=== PATIENT | female | born 1955 | race Caucasian/White ===

== ENCOUNTER 2021-08-23 09:25 | Emergency (ER) | payer OTHER, MEDICARE ==
--- OUTSIDE RECORDS SUMMARY | 2021-08-23 09:28 | XMS REPORT | Continuity of Care Document ---
:1955 Author Organization [facility] t Address [address] [place] [address] Dr. Andrea [address] [place] [id number] Care Team Providers Name Role Phone LIZET Attending Clinician Unavailable Payers Payer Name Policy Type Policy Number Effective Date Expiration Date [facility] [employer] [id number] 2021 00:00:00 Problems This patient has no known problems. Allergies, Adverse Reactions, Alerts This patient has no known allergies or adverse reactions. Medications This patient has no known medications. Procedures This patient has no known procedures. Encounters Start End Encounter Admission Attending Care Care Encounter Source Date/Time Date/Time Type Type Clinicians Facility Department ID 2020-12-06 Outpatient LIZET, [facility] [id number] [place] 04:02:37 [facility] [employer] Results This patient has no known results.
[2021-08-23] MEDS ORDERED: TETRACAINE HCL 0.5% 4ML OPTH ONE (10:16)
[2021-08-23 10:26] LABS: Absolute Lymphocytes (CBC) 1.8 K/uL (0.7-4.9); Hematocrit 44.8 % (36.0-45.0); MPV 7.3 fL (7.6-11.3); RBC Red Blood Cell Count 5.02 M/uL (3.86-4.86)
[2021-08-23 10:35] LABS: Potassium 3.9 mmol/L (3.5-5.1)
--- NOTE | 2021-08-23 10:38 | RAD REPORT ---
EXAM DESCRIPTION: CT - Head Brain Wo Cont - 08/23/2021 10:26 am CLINICAL HISTORY: left eye double vision COMPARISON: Facial Bones W Con Mpr dated 08/23/2021 TECHNIQUE: All CT scans are performed using dose optimization technique as appropriate and may inclu de automated exposure control or mA/KV adjustment according to patient size. FINDINGS: No intracranial hemorrhage, hydrocephalus or extra-axial fluid collection.No areas of brai n edema or evidence of midline shift. Chronic small vessel ischemic changes. Age-indeterminate right frontal dill radiata infarct. Trace maxillary sinus thickening. The calvarium is intact. IMPRESSION: Age indeterminate right frontal dill radiata/periventricular infarct. Chronic small ve ssel ischemic changes. MRI could further clarify.
--- NOTE | 2021-08-23 10:49 | RAD REPORT ---
EXAM DESCRIPTION: CT - CTFBWCON CLINICAL HISTORY: left eye pain, double vision COMPARISON: No comparisons TECHNIQUE: Axial 2 mm thick images of the face were obtained with sagittal and coronal reconstructio n images. All CT scans are performed using dose optimization technique as appropriate and may include automated exposure control or mA/KV adjustment according to patient size. FINDINGS: No acute facial bone fracture is seen.The mandible is intact. The globes and orbital contents are grossly unremarkable.Mild paranasal sinus thickening of the maxil eduardo sinuses. IMPRESSION: Negative for facial bone fracture.No enhancing fluid collections. Mild probably chronic maxillary sinus disease.
--- NOTE | 2021-08-23 11:42 | ER ---
Nurse's Notes [facility] Name: Abigail Barlow Age: 65 yrs Sex: Female : 1955 Arrival Date: 08/23/2021 Time: 09:28 Bed 20 Private MD: Diagnosis: Diplopia Presentation: 08/23 09:35 Chief complaint: Patient states: left eye pain, pressure, blurred vision and double clark vision. Coronavirus screen: Vaccine status: Patient reports receiving the 2nd dose of the covid vaccine. Ebola Screen: Patient denies travel to an Ebola-affected area in the 21 days before illness onset. Initial Sepsis Screen: Does the patient meet any 2 criteria? No. Patient's initial sepsis screen is negative. Does the patient have a suspected source of infection? No. Patient's initial sepsis screen is negative. Risk Assessment: Do you want to hurt yourself or someone else? Patient reports no desire to harm self or others. Onset of symptoms was August 20, 2021. 09:35 Method Of Arrival: Ambulatory clark 09:35 Acuity: JOAN 3 clark Triage Assessment: 09:37 General: Appears in no apparent distress. Behavior is calm, cooperative. Pain: clark Complains of pain in left eye. Historical: - Allergies: 09:37 PENICILLINS; clark - Immunization history:: Adult Immunizations up to date. - Social history:: Smoking status: Patient denies any tobacco usage or history of. Screenin:40 Abuse screen: Denies threats or abuse. Denies injuries from another. Nutritional bp screening: No deficits noted. Tuberculosis screening: No symptoms or risk factors identified. Fall Risk None identified. Assessment: 09:40 General: SEE TRIAGE NOTE. bp 11:00 Reassessment: No changes from previously documented assessment. Patient and/or family bp updated on plan of care and expected duration. Pain level reassessed. 12:00 Reassessment: TRANSFER IN PROCESS. bp 14:00 Reassessment: No changes from previously documented assessment. Patient and/or family bp updated on plan of care and expected duration. Pain level reassessed. 16:00 Reassessment: REPORT TO FRANCK SHANNON AT [facility]. TRANSPORT PENDING.bp 17:05 Reassessment: [facility] FOR TRANSPORT. bp Vital Signs: 09:35 BP 187 / 98; Pulse 76; Resp 18; Temp 98.2(T); Pulse Ox 96% on R/A; Weight 68.95 kg; clark Height 5 ft. 2 in. (157.48 cm); 12:00 BP 166 / 76; Pulse 65; Resp 16; Pulse Ox 97% ; bp 14:00 BP 191 / 77; Pulse 67; Resp 17; Pulse Ox 98% ; bp 16:00 BP 185 / 75; Pulse 66; Resp 17; Pulse Ox 98% ; bp 09:35 Body Mass Index 27.80 (68.95 kg, 157.48 cm) clark ED Course: 09:28 Patient arrived in ED. as 09:37 Triage completed. clark 09:37 Arm band placed on. clark 09:38 Nicholas Buckley MD is Attending Physician. rn 09:40 Patient has correct armband on for positive identification. Bed in low position. Call bp light in reach. Side rails up X2. Adult w/ patient. 10:08 Karthik Rodrigues, SHIVA is Primary Nurse. bp 10:11 Inserted saline lock: 22 gauge in right antecubital area, using aseptic technique. bp Blood collected. 10:15 Initial lab(s) drawn, by me, sent to lab. mb4 10:26 CT Head Brain wo Cont In Process Unspecified. EDMS 10:28 CT Facial Bones W/ Con \T\ Mpr In Process Unspecified. EDMS 11:01 initiated a transfer with Soraya Stein Rn from the [facility]. eb 14:39 initiated a transfer with Christie from the [facility]. eb 14:53 connected the neurologist solid waste division supervisor for [facility] with Dr. Buckley for patient eb transfer consultation. 15:20 CT Neck Angio In Process Unspecified. EDMS 15:20 CT Head Angio In Process Unspecified. EDMS 15:55 administrative approval given by Keysha Da Silva Rn/ patient has been accepted to [facility]/ Dr. Thang Carnes has accepted the patient in transfer/ report to be called to [phone]. 16:34 No provider procedures requiring assistance completed. Patient transferred, IV remains bp in place. Administered Medications: 10:18 Drug: Tetracaine Drops 0.5 % 1 drops Route: Ophthalmic; Site: left eye; bp 12:00 Drug: Aspirin Chewable Tablet 324 mg Route: PO; bp 12:16 Follow up: Response: No adverse reaction bp 12:00 Drug: Ibuprofen 800 mg Route: PO; bp 12:17 Follow up: Response: No adverse reaction bp Outcome: 11:42 ER care complete, transfer ordered by . shiva 17:05 Transferred by ground EMS to [facility], Transfer form completed. bp 17:05 Condition: stable 17:05 Instructed on the need for transfer. 17:06 Patient left the ED. bp Signatures: Dispatcher [employer] Judith Martinez Roman, MD MD rn Peltier, Brian RN Maddy Handley Mackenzie mb4 Sophia-StagerFrancesca RN RN clark Corrections: (The following items were deleted from the chart) 10:18 10:17 Tetracaine Drops 0.5 % 1 drops Ophthalmic in right eye bp bp
--- NOTE | 2021-08-23 11:42 | EDPHYS ---
Physician Documentation [facility] Name: Abigail Barlow Age: 65 yrs Sex: Female : 1955 Arrival Date: 08/23/2021 Time: 09:28 Bed 20 Private MD: ED Physician Nicholas Buckley HPI: 08/23 10:28 This 65 yrs old Female presents to ER via Ambulatory with complaints of Vision Problem, rn Sinus Congestion. Historical: - Allergies: 09:37 PENICILLINS; clark - Immunization history:: Adult Immunizations up to date. - Social history:: Smoking status: Patient denies any tobacco usage or history of. Exam: 10:46 Eyes: Pupils equal round and reactive to light, extra-ocular motions intact. Lids and rn lashes normal. Conjunctiva and sclera are non-icteric and not injected. Cornea within normal limits. Mild tenderness along medial periorbital skin withou discloration. Tonopen reveals normal pressure, right eye 19, left eye checked twice and pressures were 14/17. Vital Signs: 09:35 BP 187 / 98; Pulse 76; Resp 18; Temp 98.2(T); Pulse Ox 96% on R/A; Weight 68.95 kg; clark Height 5 ft. 2 in. (157.48 cm); 12:00 BP 166 / 76; Pulse 65; Resp 16; Pulse Ox 97% ; bp 14:00 BP 191 / 77; Pulse 67; Resp 17; Pulse Ox 98% ; bp 16:00 BP 185 / 75; Pulse 66; Resp 17; Pulse Ox 98% ; bp 09:35 Body Mass Index 27.80 (68.95 kg, 157.48 cm) clark MDM: 09:38 Patient medically screened. rn 10:59 ED course: Consulted with Dr. Arzate, who requests transfer for MRI and neurological rn consultation given diplopia and age indeterminate right frontal stroke.. 11:40 Differential Diagnosis: Other orbital cellulitis, TIA, CVA, MS, strabismus, nerve rn palsy. Data reviewed: vital signs, nurses notes, lab test result(s), radiologic studies, CT scan, and as a result, I will admit patient. Counseling: I had a detailed discussion with the patient and/or guardian regarding: the historical points, exam findings, and any diagnostic results supporting the discharge/admit diagnosis, lab results, radiology results, the need for further work-up and treatment in the hospital, the need to transfer to another facility, [facility] required specialist. 14:45 ED course: Still no acceptance from [facility], initiated to [facility]. . rn 15:05 ED course: Pt accepted for transfer to [facility], neurology requests CTA rn performed prior to transfer, order placed, notified by radiology that they do not want to give another contrast bolus given ct face with contrast performed earlier today. [place] notified.. 15:10 ED course: Dr. Campoverde stated ok to give another contrast study.. rn 08/23 09:51 Order name: CBC with Diff; Complete Time: 10:45 rn 08/23 09:51 Order name: Basic Metabolic Panel; Complete Time: 10:45 rn 08/23 09:51 Order name: Procalcitonin; Complete Time: 14:53 rn 08/23 11:06 Order name: SARS-COV-2 RT PCR (Document "Date of Onset" if Symptomatic); Complete Time: eb 14:53 08/23 11:40 Order name: TSH; Complete Time: 15:45 rn 08/23 13:48 Order name: CREATININE WHOLE BLOOD; Complete Time: 14:53 EDMS 08/23 09:51 Order name: CT Head Brain wo Cont; Complete Time: 10:45 rn 08/23 09:51 Order name: CT Facial Bones W/ Con \\T\\ Mpr; Complete Time: 10:55 rn 08/23 15:10 Order name: CT Neck Angio; Complete Time: 15:45 rn 08/23 15:10 Order name: CT Head Angio; Complete Time: 15:45 rn 08/23 09:51 Order name: IV Start; Complete Time: 10:09 rn 08/23 09:51 Order name: Misc. Order: Tonopen to bedside; Complete Time: 10:17 rn Administered Medications: 10:18 Drug: Tetracaine Drops 0.5 % 1 drops Route: Ophthalmic; Site: left eye; bp 12:00 Drug: Aspirin Chewable Tablet 324 mg Route: PO; bp 12:16 Follow up: Response: No adverse reaction bp 12:00 Drug: Ibuprofen 800 mg Route: PO; bp 12:17 Follow up: Response: No adverse reaction bp Disposition Summary: 01/23/22 11:42 Transfer Ordered Reason: Higher level of care rn Condition: Stable rn Problem: new rn Symptoms: are unchanged tele rn Location: [facility](08/23/21 16:56) eb Accepting Physician: Dr. Thang Carnes(08/23/21 17:06) Diagnosis - Diplopia rn Forms: - Medication Reconciliation Form rn - SBAR form rn Signatures: Dispatcher [employer] EDMS Nicholas Buckley MD MD rn Peltier, Brian RN Maddy Handley Heather RN SHIVA clark Corrections: (The following items were deleted from the chart) 15:14 14:57 Head Angio+CT.RAD.BRZ ordered. EDMS EDMS 15:14 14:57 Neck Angio+CT.RAD.BRZ ordered. EDSD EDMS 16:56 11:42 Dr. salazar eb 16:56 11:42 [facility] shiva eb 17:06 16:56 Dr. Thang Carnes eb bp
[2021-08-23] MEDS ORDERED: ASPIRIN 81 MG CHEWABLE TABLET ONE (12:02)
[2021-08-23] MEDS ORDERED: IBUPROFEN 400 MG TAB ONE (12:11)
--- NOTE | 2021-08-23 15:32 | RAD REPORT ---
EXAM DESCRIPTION: CT - Neck Angio - 08/23/2021 3:20 pm CLINICAL HISTORY: diplopia COMPARISON: No comparisons TECHNIQUE: CT angiography of the neck vessels was performed with MIPs. All CT scans are performed using dose optimization technique as appropriate and may include automated exposure control or mA/KV adjustment according to patient size. FINDINGS: A left aortic arch is identified with normal three vessel configuration of the great vesse ls. No significant flow abnormality is seen of the common carotid bilaterally. No significant stenosis is identified involving the cervical segments of both internal carotid arteri es. Normal flow is seen within both vertebral arteries. IMPRESSION: No significant flow abnormality of the neck vessels is identified.
--- NOTE | 2021-08-23 15:37 | RAD REPORT ---
EXAM DESCRIPTION: CT - Head angio - 08/23/2021 3:21 pm CLINICAL HISTORY: diplopia COMPARISON: Head Brain Wo Cont dated 08/23/2021; Facial Bones W Con Mpr dated 08/23/2021 TECHNIQUE: CT angiography of the head was performed with MIPs. All CT scans are performed using dose optimization technique as appropriate and may include automated exposure control or mA/KV adjustment according to patient size. FINDINGS: Anterior circulation: No large vessel occlusion. Absent right A1 segment. Variant anatomy with 2 mm aneurysm arising from t he right A2 segment of the anterior cerebral artery. No hemodynamically significant stenosis. No jasson riovenous malformation identified. Posterior circulation: No aneurysm or large vessel occlusion. No hemodynamically significant stenosis. No arteriovenous malf ormation identified. 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 Absent right A1 segment.
[2021-08-23 21:51] VITALS: TEMP 98.2
[2021-08-23 21:53] VITALS: O2SAT 98
[2021-08-23 21:54] VITALS: BP 185/75
== END 2021-08-23 17:06 | disposition short-term general hospital (02) ==
LOC: ER 09:25
DX: H53.2 Diplopia (principal); Z20.822 Contact with and (suspected) exposure to COVID-19; Z88.0 Allergy status to penicillin
CPT/HCPCS: 85025; 80048; 36415; 82565; 84443; 84145; 70450; 70487; 76377; 70496; 70498; U0003; Q9967 ×2; 99285

== ENCOUNTER 2021-11-10 17:57 | Inpatient (IN) | payer OTHER, MEDICARE ==
--- OUTSIDE RECORDS SUMMARY | 2021-11-10 18:00 | XMS REPORT | Continuity of Care Document ---
:1955 Author Organization [facility] t Address [address] [place] [address] Dr. Andrea [address] [place] [address] Care Team Providers Name Role Phone Lizet SMITH Primary Care Physician FIFI Attending Clinician Unavailable LIZET Attending Clinician Unavailable Adrianna GTZ Attending Clinician Unavailable Payers Payer Name Policy Type Policy Number Effective Date [facility] Date [facility] [employer] [id number] 2021 2021 00:00:00 00:00:00 MEDICARE PART A AND [id number] 2020 B 00:00:00 Problems This patient has no known problems. Allergies, Adverse Reactions, Alerts Allergy Allergy Status Severity Reaction(s) Onset Inactive Treating Comm ents Source Name Type Date Date Clinician Penicill Allergy Active Hives [facility] ins to 5-25 Health substan 00:00: e 00 Social History Social Habit Start Date Stop Date Quantity Comments Source Exposure to Not sure [facility] SARS-CoV-2 (event) Tobacco use and 2021-09-09 2021-09-09 Smokeless tobacco [facility] exposure 00:00:00 00:00:00 non-user Sex Ass[birth year] [facility] 00:00:00 00:00:00 Smoking Status Start Date Stop Date Source Tobacco smoking consumption unknown [facility] Never smoked tobacco [facility] Medications Ordered Filled Start Stop Current Ordering Indication Dosage Frequency Signature Comments Components Source Medication Medication Date Date Medication? Clinician (SIG) Name Name amLODIPine Yes 5mg QD Take 5 mg [facility] (Norvasc) 5 1-31 by mouth 1 He alth MG tablet 00:00: (one) time 00 each day. ondansetron Yes TAKE 1 [facility] (Zofran) 4 -31 TABLET BY Heal th MG tablet 00:00: MOUTH 4 00 TIMES DAILY NEEDED FOR NAUSEA AND VOMITING amLODIPine 0 Yes 5mg QD Take 5 mg UT (Norvasc) 5 -31 by mouth 1 He alth MG tablet 00:00: (one) time 00 each day. ondansetron Yes TAKE 1 UT (Zofran) 4 -31 TABLET BY Heal th MG tablet 00:00: MOUTH 4 00 TIMES DAILY NEEDED FOR NAUSEA AND VOMITING amLODIPine 0 Yes 5mg QD Take 5 mg UT (Norvasc) 5 31 by mouth 1 He alth MG tablet 00:00: (one) time 00 each day. ondansetron Yes TAKE 1 UT (Zofran) 4 -31 TABLET BY Heal th MG tablet 00:00: MOUTH 4 00 TIMES DAILY NEEDED FOR NAUSEA AND VOMITING predniSONE Yes 20mg QD Take 20 mg U T (Deltasone) 1-28 by mouth 1 He alth 20 MG 00:00: (one) time tablet 00 each day. TAKE 1 TABLET BY MOUTH ONCE DAILY FOR 14 DAYS predniSONE Yes 20mg QD Take 20 mg U T (Deltasone) 1-28 by mouth 1 He alth 20 MG 00:00: (one) time tablet 00 each day. TAKE 1 TABLET BY MOUTH ONCE DAILY FOR 14 DAYS predniSONE Yes 20mg QD Take 20 mg U T (Deltasone) 1-28 by mouth 1 He alth 20 MG 00:00: (one) time tablet 00 each day. TAKE 1 TABLET BY MOUTH ONCE DAILY FOR 14 DAYS metoprolol 2020-08 Yes 50mg QD Take 50 mg U T succinate 19 by mouth 1 Heal th XL 00:00: (one) time (Toprol-XL) 00 each day. 50 MG 24 hr tablet sertraline 2020-08 Yes 50mg QD Take 50 mg U T (Zoloft) 50 -19 by mouth 1 He alth MG tablet 00:00: (one) time 00 each day. rosuvastati 2020-08 Yes 20mg QD Take 20 mg UT n (Crestor) -19 by mouth 1 He alth 20 MG 00:00: (one) time tablet 00 each day. metoprolol 2020-08 Yes 50mg QD Take 50 mg U T succinate 1-19 by mouth 1 Heal th XL 00:00: (one) time (Toprol-XL) 00 each day. 50 MG 24 hr tablet sertraline 2020-08 Yes 50mg QD Take 50 mg U T (Zoloft) 50 -19 by mouth 1 He alth MG tablet 00:00: (one) time 00 each day. rosuvastati 2020-08 Yes 20mg QD Take 20 mg UT n (Crestor) 1-19 by mouth 1 He alth 20 MG 00:00: (one) time tablet 00 each day. metoprolol 2020-08 Yes 50mg QD Take 50 mg U T succinate 1-19 by mouth 1 Heal th XL 00:00: (one) time (Toprol-XL) 00 each day. 50 MG 24 hr tablet sertraline 2020-08 Yes 50mg QD Take 50 mg U T (Zoloft) 50 -19 by mouth 1 He alth MG tablet 00:00: (one) time 00 each day. rosuvastati 2020-08 Yes 20mg QD Take 20 mg UT n (Crestor) 1-19 by mouth 1 He alth 20 MG 00:00: (one) time tablet 00 each day. tiZANidine 2020-08 Yes TAKE 1 UT (Zanaflex) 1-18 TABLET BY [facility] 4 MG tablet 00:00: MOUTH 00 TWICE DAILY NEEDED FOR BACK PAIN tiZANidine 2020-08 Yes TAKE 1 UT (Zanaflex) 1-18 TABLET BY [facility] 4 MG tablet 00:00: MOUTH 00 TWICE DAILY NEEDED FOR BACK PAIN tiZANidine 2020-08 Yes TAKE 1 UT (Zanaflex) 1-18 TABLET BY [facility] 4 MG tablet 00:00: MOUTH 00 TWICE DAILY NEEDED FOR BACK PAIN Ilevro 0.3 2020-0 Yes UT % 8-03 Health suspension 00:00: 00 Ilevro 0.3 2020-0 Yes UT % 8-03 Health suspension 00:00: 00 Ilevro 0.3 2020-0 Yes UT % 8-03 Health suspension 00:00: 00 Durezol 0 Yes UT 0.05 % 8-02 Health ophthalmic 00:00: solution 00 Durezol 2020-0 Yes HI 0.05 % 8- Health ophthalmic 00:00: solution 00 Durezol 2020-0 Yes HI 0.05 % 8- Health ophthalmic 00:00: solution 00 Vital Signs Vital Name Observation Time Observation Value Comments Source Systolic blood pressure 2021-09-07 20:23:00 109 mm[Hg] [facility] Diastolic blood pressure 2021-09-07 20:23:00 70 mm[Hg] [facility] Heart rate 2021-09-07 20:23:00 62 /min [facility] Body temperature 2021-09-07 20:23:00 36 Tiera [facility] Respiratory rate 2021-09-07 20:23:00 18 /min [facility] Body height 2021-09-07 20:23:00 157.5 cm [facility] Body weight 2021-09-07 20:23:00 72.576 kg [facility] BMI 2021-09-07 20:23:00 29.26 kg/m2 [facility] Oxygen saturation in 2021-09-07 20:23:00 97 /min [facility] Arterial blood by Pulse oximetry Procedures This patient has no known procedures. Encounters Start End Encounter Admission Attending Care Care Encounter Source Date/Time Date/Time Type Type Clinicians Facility Department ID 2021-11-10 Outpatient [facility] [id number] [place] 14:31:12 [id number] [facility] 2021-11-07 Outpatient [facility] [id number] [place] 12:57:[id number] [place] [address] 2021-09-28 Outpatient FIFI [facility] [id number] [place] 09:14:43 ORE-YANETHANAALIYAH [facility] 2021-09-08 Outpatient FIFI [facility] [id number] [place] 13:35:10 ORE-OFEOLAALIYAH [facility] 2021-09-07 Outpatient LIZET [facility] [id number] [place] 15:29:23 [facility] 2020-12-06 Outpatient LIZET, [facility] [id number] [place] 04:02:37 [facility] 2021-09-28 2021-09-28 [id number] [place] 09:00:00 09:13:[address] [id number] Health atomi [id number] 2021-09-08 2021-09-08 Telephone Erica Rodas [facility] [id number] [place] 00:00:00 00:00:00 Erica Rodas [facility] [id number] Health [facility] [id number] 2021-09-07 2021-09-07 Office LizetMARINA 6410 [id number] [place] 14:45:00 15:29:[address] [id number] Health [id number] Results This patient has no known results.
--- NOTE | 2021-11-10 19:14 | RAD REPORT ---
EXAM DESCRIPTION: RAD - Chest Single View - 11/10/2021 7:06 pm CLINICAL HISTORY: COUGH COMPARISON: None available TECHNIQUE: AP portable chest image was obtained 11/10/2021 7:06 pm . FINDINGS: No peripheral mass consolidation. Mildly prominent interstitial pattern is believed be bas elizabeth. Rounded mass in the midline lung base is very likely an incidental hiatal hernia. Heart and vasculature are normal. No measurable pleural effusion and no pneumothorax. No acute bony abnormality seen. No acute aortic findings suspected. IMPRESSION: No acute cardiopulmonary process.
[2021-11-10] MEDS ORDERED: METHYLPREDNISOLONE 125 MG INJ ONE (19:58)
[2021-11-10] MEDS ORDERED: HYDROCODONE/CHLORPHEN 5 ML/OSYR ONE (19:58)
[2021-11-10] MEDS ORDERED: ALBUTEROL 2.5 MG/3 ML NEB SOL ONE (19:59)
[2021-11-10] MEDS ORDERED: IPRATROPIUM BROM 0.5MG/2.5ML ONE (20:00)
[2021-11-10 20:44] LABS: Arterial Blood Carboxyhemoglob 1.7 % (0-1.5); Blood Gas Oxyhemoglobin 97.3 % (94-97); Blood O2 Saturation 99.8 % (92-98.5)
[2021-11-10 20:51] LABS: Absolute Lymphocytes (CBC) 1.5 K/uL (0.7-4.9); Hematocrit 38.8 % (36.0-45.0); Lymphocytes % 13.7 % (15.3-44.8); MPV 7.8 fL (7.6-11.3); RBC Red Blood Cell Count 4.48 M/uL (3.86-4.86)
[2021-11-10 20:52] LABS: Protime INR 1.26
[2021-11-10 21:09] LABS: Albumin 3.2 g/dL (3.4-5.0); Bilirubin Direct 0.2 mg/dL (0-0.2); Bilirubin Total 0.6 mg/dL (0.2-1.0); Potassium 3.2 mmol/L (3.5-5.1); Protein, Total 7.1 g/dL (6.4-8.2); Troponin High Sensitivity 53.2 pg/mL (<58.9)
[2021-11-10 21:23] LABS: SARS-COV-2 RT PCR NEGATIVE (NEGATIVE)
--- NOTE | 2021-11-10 22:03 | RAD REPORT ---
EXAM DESCRIPTION: CT - Chest For Pe Angio - 11/10/2021 9:43 pm CLINICAL HISTORY: SOB COMPARISON: Chest Single View dated 11/10/2021 TECHNIQUE: Dynamically enhanced 3 mm thick images of the chest were obtained during administration o f approximately 150mL Isovue 370 IV contrast. Coronal and oblique MIP reconstruction images were gene rated and reviewed. Exam utilizes a protocol to evaluate the pulmonary arterial tree. All CT scans are performed using dose optimization technique as appropriate and may include automated exposure control or mA/KV adjustment according to patient size. FINDINGS: No pulmonary emboli are identified. The aorta as imaged shows no acute or suspicious finding. No pericardial thickening or effusion. No focal mass consolidation. Bronchial wall thickening present. Interstitial thickening is present th roughout the lung rose and could be interstitial edema, infiltrate, scarring or a combination. No p leural effusion or pleural thickening. No mediastinal or hilar suspicious masses. No chest wall masses or abnormal axillary lymphadenopathy. Moderate hiatal hernia present. IMPRESSION: No pulmonary emboli identified. Peribronchial thickening and prominent interstitial markings could be viral infiltrate in the acute c linical setting. Chronic fibrotic lung changes possible as well.
--- NOTE | 2021-11-10 22:30 | ER ---
Nurse's Notes [facility] Name: Abigail Barlow Age: 66 yrs Sex: Female : 1955 Arrival Date: 11/10/2021 Time: 18:00 Bed 26 Private MD: Eliot Arzate C Diagnosis: COPD/ Chronic obstructive pulmonary disease with (acute) exacerbation-Hypoxia Presentation: 11/10 18:33 Chief complaint: Patient states: cough, fever and shortness of breath that began 4 days ss ago. Pt reports her baseline O2 on RA is 94%, was was concerned today when she couldn't get it above 90%. HX of COPD. Coronavirus screen: Client presents with at least one sign or symptom that may indicate coronavirus-19. Standard/surgical mask placed on the client. Ebola Screen: Patient denies exposure to infectious person. Patient denies travel to an Ebola-affected area in the 21 days before illness onset. Initial Sepsis Screen: Does the patient meet any 2 criteria? No. Patient's initial sepsis screen is negative. Does the patient have a suspected source of infection? No. Patient's initial sepsis screen is negative. Risk Assessment: Do you want to hurt yourself or someone else? Patient reports no desire to harm self or others. Onset of symptoms was November 06, 2021. 18:33 Method Of Arrival: Ambulatory ss 18:33 Acuity: JOAN 3 ss Historical: - Allergies: 18:35 PENICILLINS; ss - PMHx: 18:35 COPD; ss - Immunization history:: Client reports receiving the 2nd dose of the Covid vaccine. - Social history:: Smoking status: Patient denies any tobacco usage or history of. Screenin:28 Abuse screen: Denies threats or abuse. Nutritional screening: No deficits noted. al4 Tuberculosis screening: No symptoms or risk factors identified. 11/11 00:54 Fall Risk No fall in past 12 months (0 pts). IV access (20 points). Ambulatory Aid- al4 None/Bed Rest/Nurse Assist (0 pts). Gait- Normal/Bed Rest/Wheelchair (0 pts) Mental Status- Oriented to own ability (0 pts). Total Mckay Fall Scale indicates No Risk (0-24 pts). Assessment: 11/10 20:06 General: Appears in no apparent distress. comfortable, Behavior is calm, cooperative, al4 appropriate for age. Neuro: Level of Consciousness is awake, alert, obeys commands, Oriented to person, place, time, situation. Cardiovascular: Capillary refill < 3 seconds Patient's skin is warm and dry. Respiratory: Reports cough that is productive. Respiratory: Airway is patent Respiratory effort is unlabored, Respiratory pattern is symmetrical, Breath sounds with rhonchi bilaterally. GI: Reports nausea, vomiting, since Tuesday. EENT: Reports nasal congestion throat congestion. 20:06 Cardiovascular: Rhythm is regular. al4 23:10 Reassessment: Patient is alert, oriented x 3, equal unlabored respirations, skin al4 warm/dry/pink. 23:40 Reassessment: Lab notified to draw blood cultures. ordered blood cultures before al4 antibiotics start. 23:50 Reassessment: RT came to bedside, patient was concerned about O2 level being 92% al4 stating she is normally 94% at home. RT stated to put patient on 3L O2. 11/11 00:00 Reassessment: Patient appears in no apparent distress at this time. Patient is alert, al4 oriented x 3, equal unlabored respirations, skin warm/dry/pink. Vital Signs: 11/10 18:33 BP 143 / 75; Pulse 103; Resp 17; Temp 99.1(O); Pulse Ox 87% on R/A; Weight 70.31 kg; ss Height 5 ft. 2 in. (157.48 cm); Pain 0/10; 20:06 BP 133 / 62; Pulse 86; Resp 24; Pulse Ox 94% on 2 lpm NC; al4 21:00 BP 114 / 69; Pulse 92; Resp 18; Pulse Ox 94% 2 lpm ; al4 23:10 BP 124 / 68; Pulse 74; Resp 22; Pulse Ox 94% on 2 lpm NC; al4 11/11 00:00 BP 112 / 75; Pulse 78; Resp 22; Pulse Ox 94% 3 lpm ; al4 00:45 BP 115 / 54; Pulse 77; Resp 20; Pulse Ox 94% on 3 lpm NC; al4 11/10 18:33 Body Mass Index 28.35 (70.31 kg, 157.48 cm) ED Course: 11/10 18:00 Patient arrived in ED. mr 18:00 Eliot Arzate MD is Private Physician. mr 18:34 Triage completed. ss 18:35 Arm band placed on right wrist. ss 18:38 [facility] pm1 18:38 Andrew Watkins MD is Attending Physician. pm1 19:08 XRAY Chest (1 view) In Process Unspecified. EDMS 19:50 Gerson Veronica is Primary Nurse. al4 20:05 Attending Physician role handed off by Andrew Watkins MD 7 20:05 aDnny William MD is Attending Physician. mh7 20:06 Inserted saline lock: 20 gauge in right antecubital area, using aseptic technique. al4 Blood collected. 20:26 COVID-19/FLU A+B (Document "Date of Onset" if Symptomatic) Sent. al4 20:28 Bed in low position. Call light in reach. al4 20:32 Danny William MD is Attending Physician. mh7 21:44 Chest For Pe Angio In Process Unspecified. EDMS 22:29 Eliot Arzate MD is Hospitalizing Provider. [facility] 11/11 01:05 No provider procedures requiring assistance completed. Patient admitted, IV remains in al4 place. 01:47 NT PRO-BNP Sent. al4 01:48 NT PRO-BNP Sent. al4 01:48 CBC with Automated Diff Sent. al4 01:48 CBC with Automated Diff Sent. al4 01:48 Basic Metabolic Panel Sent. al4 01:48 Basic Metabolic Panel Sent. al4 Administered Medications: 11/10 20:17 Drug: SOLU-Medrol (methylPrednisoLONE) 125 mg Route: IVP; Site: right antecubital; al4 21:00 Follow up: Response: No adverse reaction al4 20:17 Drug: Tussionex Pennkinetic ER (chlorpheniramine-hydrocodone) Suspension 5 ml Route: PO;al4 21:00 Follow up: Response: No adverse reaction al4 20:26 Drug: Albuterol - atroVENT (ipratropium) (3:1) (2.5 mg - 0.5 mg) 3 ml Route: Nebulizer; al4 21:00 Follow up: Response: No adverse reaction al4 23:49 Drug: Potassium Effervescent Tablet 50 mEq Route: PO; sc4 11/11 01:06 Follow up: Response: No adverse reaction al4 11/10 23:49 Drug: Lasix (furosemide) 20 mg Route: IVP; Infused Over: 2 mins; Site: right al4 antecubital; 11/11 01:06 Follow up: Response: No adverse reaction al4 00:25 Drug: LevaQUIN (levofloxacin) 500 mg Volume: 100 ml; Route: IVPB; Infused Over: 60 al4 mins; Site: right antecubital; 01:26 Follow up: Response: No adverse reaction; IV Status: Completed infusion; IV Intake: al4 100ml Intake: 01:26 IV: 100ml; Total: 100ml. al4 Outcome: 11/10 22:29 Decision to Hospitalize by Provider. 7 11/11 01:05 Admitted to ER Hold. [facility]. al4 Condition: stable Instructed on the need for admit, Demonstrated understanding of instructions. 17:57 Patient left the ED. Signatures: Dispatcher [employer] HERNESTOPA Lupillo Savi lane Aleyda Vidal RN RN ss Rick Hilario, DOCKING SAW OPERATOR DOCKING SAW OPERATOR pm1 Danny William MD MD 7 Gerson Veronica al4 Corrections: (The following items were deleted from the chart) 00:19 11/10 23:50 Reassessment: RT came to bedside, patient was concerned about O2 level. RT al4 stated to put patient on 3L O2 al4 11/11 00:54 11/10 20:06 Respiratory: Airway is patent Respiratory effort is unlabored, Respiratory al4 pattern is symmetrical, al4
--- NOTE | 2021-11-10 22:30 | EDPHYS ---
Physician Documentation [facility] Name: Abigail Barlow Age: 66 yrs Sex: Female : 1955 Arrival Date: 11/10/2021 Time: 18:00 Bed 26 Private MD: Eliot Arzate C ED Physician Danny William HPI: 11/10 20:15 This 66 yrs old Female presents to ER via Ambulatory with complaints of Cough, Fever, mh7 Shortness Of Breath. 20:15 The patient or guardian reports cough, that is intermittent, described as moderate, mh7 with productive sputum, that is yellow, difficulty breathing, Fever. Onset: The symptoms/episode began/occurred 4 day(s) ago. Severity of symptoms: At their worst the symptoms were moderate, last night, in the emergency department the symptoms are unchanged. Modifying factors: The symptoms are alleviated by nothing, the symptoms are aggravated by nothing. Associated signs and symptoms: Pertinent positives: fever, rhinorrhea, Pertinent negatives: chest pain, diarrhea, ear ache, nausea, sore throat, vomiting. Historical: - Allergies: 18:35 PENICILLINS; ss - PMHx: 18:35 COPD; ss - Immunization history:: Client reports receiving the 2nd dose of the Covid vaccine. - Social history:: Smoking status: Patient denies any tobacco usage or history of. ROS: 20:15 Eyes: Negative for injury, pain, redness, and discharge, ENT: Negative for injury, mh7 pain, and discharge, Neck: Negative for injury, pain, and swelling, Cardiovascular: Negative for chest pain, palpitations, and edema, Abdomen/GI: Negative for abdominal pain, nausea, vomiting, diarrhea, and constipation, Back: Negative for injury and pain, : Negative for injury, bleeding, discharge, and swelling, MS/Extremity: Negative for injury and deformity, Skin: Negative for injury, rash, and discoloration, Neuro: Negative for headache, weakness, numbness, tingling, and seizure, Psych: Negative for depression, anxiety, suicide ideation, homicidal ideation, and hallucinations, Allergy/Immunology: Negative for hives, rash, and allergies, Endocrine: Negative for neck swelling, polydipsia, polyuria, polyphagia, and marked weight changes, Hematologic/Lymphatic: Negative for swollen nodes, abnormal bleeding, and unusual bruising. Exam: 20:15 Constitutional: This is a well developed, well nourished patient who is awake, alert, mh7 and in no acute distress. Head/Face: Normocephalic, atraumatic. Eyes: Pupils equal round and reactive to light, extra-ocular motions intact. Lids and lashes normal. Conjunctiva and sclera are non-icteric and not injected. Cornea within normal limits. Periorbital areas with no swelling, redness, or edema. Neck: Trachea midline, no thyromegaly or masses palpated, and no cervical lymphadenopathy. Supple, full range of motion without nuchal rigidity, or vertebral point tenderness. No Meningismus. Chest/axilla: Normal chest wall appearance and motion. Nontender with no deformity. No lesions are appreciated. 20:15 Abdomen/GI: Soft, non-tender, with normal bowel sounds. No distension or tympany. No guarding or rebound. No evidence of tenderness throughout. Back: No spinal tenderness. No costovertebral tenderness. Full range of motion. Skin: Warm, dry with normal turgor. Normal color with no rashes, no lesions, and no evidence of cellulitis. MS/ Extremity: Pulses equal, no cyanosis. Neurovascular intact. Full, normal range of motion. Neuro: Awake and alert, GCS 15, oriented to person, place, time, and situation. Cranial nerves II-XII grossly intact. Motor strength 5/5 in all extremities. Sensory grossly intact. Cerebellar exam normal. Normal gait. Psych: Awake, alert, with orientation to person, place and time. Behavior, mood, and affect are within normal limits. 20:15 Cardiovascular: Rate: tachycardic, Rhythm: regular, Pulses: no pulse deficits are appreciated, Heart sounds: normal, normal S1and S2, Edema: is not appreciated, JVD: is not appreciated. 20:15 Respiratory: the patient does not display signs of respiratory distress, Respirations: prolonged exhalation, that is mild, Breath sounds: rhonchi, that are moderate, are scattered, Respiratory rate: 18 Vital Signs: 18:33 BP 143 / 75; Pulse 103; Resp 17; Temp 99.1(O); Pulse Ox 87% on R/A; Weight 70.31 kg; ss Height 5 ft. 2 in. (157.48 cm); Pain 0/10; 20:06 BP 133 / 62; Pulse 86; Resp 24; Pulse Ox 94% on 2 lpm NC; al4 21:00 BP 114 / 69; Pulse 92; Resp 18; Pulse Ox 94% 2 lpm ; al4 23:10 BP 124 / 68; Pulse 74; Resp 22; Pulse Ox 94% on 2 lpm NC; al4 11/11 00:00 BP 112 / 75; Pulse 78; Resp 22; Pulse Ox 94% 3 lpm ; al4 00:45 BP 115 / 54; Pulse 77; Resp 20; Pulse Ox 94% on 3 lpm NC; al4 11/10 18:33 Body Mass Index 28.35 (70.31 kg, 157.48 cm) ss MDM: 11/10 18:44 Patient medically screened. pm1 22:27 Differential Diagnosis: Bronchitis Influenza Upper Respiratory Infection Sinusitis mh7 Pharyngitis Otitis Media Allergic Rhinitis Asthma Exacerbation Viral Syndrome Pneumonia. Data reviewed: vital signs, nurses notes, old medical records, lab test result(s), cardiac enzymes, CBC, electrolytes, EKG, radiologic studies, CT scan, plain films. Data interpreted: Pulse oximetry: on 2L(s) per nasal canula, is 90 %. Interpretation: hypoxia. Counseling: I had a detailed discussion with the patient and/or guardian regarding: the historical points, exam findings, and any diagnostic results supporting the discharge/admit diagnosis, lab results, radiology results, the need for further work-up and treatment in the hospital. Response to treatment: the patient's symptoms have mildly improved after treatment. 11/10 18:40 Order name: COVID-19/FLU A+B (Document "Date of Onset" if Symptomatic); Complete Time: ss 21:24 11/10 18:43 Order name: Basic Metabolic Panel; Complete Time: 21:13 pm1 11/10 18:43 Order name: CBC with Diff; Complete Time: 21:00 pm1 11/10 18:43 Order name: LFT's; Complete Time: 21:13 pm1 11/10 18:43 Order name: NT PRO-BNP; Complete Time: 21:13 pm1 11/10 18:43 Order name: PT-INR; Complete Time: 21:00 pm1 11/10 18:43 Order name: Troponin HS; Complete Time: 21:13 pm1 11/10 20:14 Order name: Arterial Blood Gas; Complete Time: 21:00 [facility] 11/10 22:27 Order name: Blood Culture Adult (2) [facility] 11/10 22:38 Order name: Basic Metabolic Panel [facility] 11/10 22:38 Order name: Basic Metabolic Panel [facility] 11/10 22:38 Order name: CBC with Automated Diff EDMS 11/10 22:38 Order name: CBC with Automated Diff EDMS 11/10 22:38 Order name: NT PRO-BNP [facility] 11/10 18:35 Order name: XRAY Chest (1 view); Complete Time: 19:55 ss 11/10 18:43 Order name: EKG; Complete Time: 18:44 pm1 11/10 18:43 Order name: Cardiac monitoring; Complete Time: 20:43 pm1 11/10 21:19 Order name: Chest For Pe Angio; Complete Time: 22:05 [facility] 11/10 22:38 Order name: Heart Healthy [facility] 11/10 22:38 Order name: EKG Electrocardiogram [facility] 11/10 22:38 Order name: EKG Electrocardiogram [facility] 11/10 22:38 Order name: NT PRO-BNP [facility] 11/10 22:38 Order name: Chest Single View [facility] 11/10 22:38 Order name: Chest Single View [facility] 11/10 18:43 Order name: EKG - Nurse/Tech; Complete Time: 20:43 pm1 11/10 18:43 Order name: IV Saline Lock; Complete Time: 20:26 pm1 11/10 18:43 Order name: Labs collected and sent; Complete Time: 20:26 pm1 11/10 18:43 Order name: O2 Per Protocol; Complete Time: 20:26 pm1 11/10 18:43 Order name: O2 Sat Monitoring; Complete Time: 20:26 pm1 Administered Medications: 20:17 Drug: SOLU-Medrol (methylPrednisoLONE) 125 mg Route: IVP; Site: right antecubital; al4 21:00 Follow up: Response: No adverse reaction al4 20:17 Drug: Tussionex Pennkinetic ER (chlorpheniramine-hydrocodone) Suspension 5 ml Route: PO;al4 21:00 Follow up: Response: No adverse reaction al4 20:26 Drug: Albuterol - atroVENT (ipratropium) (3:1) (2.5 mg - 0.5 mg) 3 ml Route: Nebulizer; al4 21:00 Follow up: Response: No adverse reaction al4 23:49 Drug: Potassium Effervescent Tablet 50 mEq Route: PO; al4 11/11 01:06 Follow up: Response: No adverse reaction al4 11/10 23:49 Drug: Lasix (furosemide) 20 mg Route: IVP; Infused Over: 2 mins; Site: right al4 antecubital; 11/11 01:06 Follow up: Response: No adverse reaction al4 00:25 Drug: LevaQUIN (levofloxacin) 500 mg Volume: 100 ml; Route: IVPB; Infused Over: 60 al4 mins; Site: right antecubital; 01:26 Follow up: Response: No adverse reaction; IV Status: Completed infusion; IV Intake: al4 100ml Disposition Summary: 11/10/21 22:29 Hospitalization Ordered Hospitalization Status: Inpatient Admission [facility] Provider: Eliot Arzate Condition: Stable [facility] Problem: an acute exacerbation [facility] Symptoms: have improved [facility] Bed/Room Type: Standard [facility] Location: Telemetry/MedSurg (Inpatient)(11/11/21 17:23) Room Assignment: 220(11/11/21 17:23) Diagnosis - COPD/ Chronic obstructive pulmonary disease with (acute) exacerbation - Hypoxia [facility] Forms: - Medication Reconciliation Form [facility] - SBAR form [facility] Signatures: Dispatcher [employer] EDMS Urvashi Riley RN RN mw Smirch, Shelby, RN RN ss Attema, Lee, PIPE LAYER-C PIPE LAYER-Cla1 Andrew López PA PA Rick Kendrick, SINCERE WEAVE DEFECT CHARTING CLERK pm1 Danny William MD MD 7 Gerson Veronica al4 Corrections: (The following items were deleted from the chart) 11/10 23:11 22:29 Telemetry/MedSurg (Inpatient) [facility] 23:11 22:29 [facility] 11/11 17:23 11/10 23:11 [facility] ER HOLD [facility] 11/11 17:23 11/10 23:11 ERHOLD- [facility]
[2021-11-10] MEDS ORDERED: IPRATROPIUM BROM 0.5MG/2.5ML NEB PRN (22:32)
[2021-11-10] MEDS ORDERED: MORPHINE 4 MG/ML SYR IV PRN (22:32)
[2021-11-10] MEDS ORDERED: ONDANSETRON 4 MG/2 ML VIAL IV PRN (22:32)
[2021-11-10] MEDS ORDERED: ACETAMINOPHEN 500 MG TAB PO PRN (22:32)
[2021-11-10] MEDS ORDERED: POTASSIUM 25 MEQ EFFERV TAB ONE (23:38)
[2021-11-10] MEDS ORDERED: FUROSEMIDE 20 MG/ 2ML VIAL ONE (23:38)
[2021-11-10] MEDS ORDERED: Levofloxacin500mg IV 500 MG/100 ML BAG IV ONE (23:39)
[2021-11-11 01:49] LABS: Absolute Lymphocytes (CBC) 0.5 K/uL (0.7-4.9); Hematocrit 38.3 % (36.0-45.0); Lymphocytes % 4.8 % (15.3-44.8); MPV 7.6 fL (7.6-11.3); RBC Red Blood Cell Count 4.33 M/uL (3.86-4.86)
[2021-11-11 02:05] LABS: Potassium 3.8 mmol/L (3.5-5.1)
[2021-11-11 03:26] VITALS: BMI 28.3
[2021-11-11] MEDS: METHYLPREDNISOLONE 40 MG INJ IV SCH ×3 (04:30→16:55)
[2021-11-11] MEDS ORDERED: METHYLPREDNISOLONE 40 MG INJ ONE (05:25)
[2021-11-11] MEDS: ALBUTEROL 2.5 MG/3 ML NEB SOL NEB SCH ×3 (08:00→20:39)
[2021-11-11] MEDS: IPRATROPIUM BROM 0.5MG/2.5ML NEB SCH ×3 (08:00→20:39)
--- NOTE | 2021-11-11 08:25 | RAD REPORT ---
EXAM DESCRIPTION: [place]heen Single View11/11/2021 5:00 am CLINICAL HISTORY: Chest pain COMPARISON: October 2021 FINDINGS: The lungs appear clear of acute infiltrate. The heart is normal size. Small hiatal hernia IMPRESSION: No acute abnormalities displayed
[2021-11-11] MEDS: ASPIRIN EC 81 MG TAB PO SCH (09:00)
[2021-11-11] MEDS: ENOXAPARIN 40 MG/0.4 ML SQ SCH (09:00)
[2021-11-11] MEDS: SERTRALINE HCL 50 MG TAB PO SCH (10:00)
[2021-11-11] MEDS ORDERED: METHYLPREDNISOLONE 125 MG INJ ONE ×2 (10:16→16:56)
[2021-11-11] MEDS ORDERED: ASPIRIN 81 MG CHEWABLE TABLET ONE (10:16)
[2021-11-11] MEDS ORDERED: METOPROLOL XL 50 MG TAB PO ONE (10:16)
[2021-11-11] MEDS: METOPROLOL XL 50 MG TAB PO SCH (10:16)
--- NOTE | 2021-11-11 10:59 | EKG ---
Test Date: 2021-11-10 Test Time: 20:34:10 Executive Vp: CAESAR MEASUREMENT RESULTS: Intervals: Rate: 84 MT: 136 QRSD: 86 QT: 396 QTc: 467 Goodwin: P: 37 MT: 136 QRS: 75 T: 65 INTERPRETIVE STATEMENTS: Normal sinus rhythm Cannot rule out Anterior infarct, age undetermined Abnormal ECG No previous ECG available for comparison Electronically Signed On 11-11-21 10:57:17 CDT by Marcelo Ding
[2021-11-11] MEDS ORDERED: ALBUTEROL 2.5 MG/3 ML NEB SOL ONE (15:15)
[2021-11-11] MEDS ORDERED: IPRATROPIUM BROM 0.5MG/2.5ML ONE (15:15)
[2021-11-11] MEDS: Levofloxacin500mg IV 500 MG/100 ML BAG IV SCH (22:22)
[2021-11-11] MEDS: ROSUVASTATIN 10 MG TAB PO SCH (22:23)
[2021-11-12] MEDS ORDERED: ALBUTEROL 2.5 MG/3 ML NEB SOL NEB PRN
[2021-11-12] MEDS: ALBUTEROL 2.5 MG/3 ML NEB SOL NEB SCH ×5 (01:12→20:10)
[2021-11-12] MEDS: IPRATROPIUM BROM 0.5MG/2.5ML NEB SCH ×5 (01:12→20:10)
[2021-11-12] MEDS: METHYLPREDNISOLONE 40 MG INJ IV SCH ×2 (01:43→10:10)
--- NOTE | 2021-11-12 04:00 | HP ---
Date of Admission: 11/10/2021 Patient was seen this morning. Chief Complaint: Cough, shortness of breath. History Of Present Illness: This is a 66-year-old pleasant female patient who has underlying COPD, c paige into emergency room with few days history of cough, chest congestion, coughing up some yellow col ored mucus, and shortness of breath. After she was evaluated in the ER, [facility]. Her oxygen saturation at home before she came to emergency room was around 86% to 87% on room air. After she came to emergency room, oxygen replacement therapy was started and when I saw her on this morning, she was on nasal cannula oxygen, maintaining adequate oxygenation. Allergies: TO PENICILLIN. Medications: According to office list, she is on Prevacid, Ventolin, metoprolol, Asmanex, Stiolto, r osuvastatin, sertraline, tizanidine. Review of Systems: Respiratory: As mentioned above. All other systems reviewed and negative. Past Medical History: Significant for COPD, hypertension, hyperlipidemia, gastroesophageal reflux di sease, back pain. Past Surgical History: Cataract surgery. Family History: Sister with colon cancer and hypertension. Social History: Prior history of smoking, not at present time. Use of alcohol, a glass of wine occa sionally. Physical Examination: Vital Signs: Temperature 97.8, pulse 62, respiratory rate 17, blood pressure 123/66, oxygen saturati on 95%. Height 5 feet 2 inches, weight 155 pounds. General: Awake, alert, oriented, not in distress. HEENT: Head atraumatic, normocephalic. Conjunctivae nonerythematous. Sclerae white. Mouth, no thr ush or edema noted. Ears/Nose, no mass, lesion, discharge noted. Neck: Supple. No JVD, lymph nodes, bruit, thyromegaly noted. Lungs: Presence of some rales noted in lower lung rose. Not using any accessory muscles of respir ation. Heart: Normal heart sounds, no murmur or gallop. Abdomen: Soft, bowel sounds normal. No guarding, rigidity, tenderness, mass, hepatosplenomegaly, dis tention, or bruit noted. Extremities: No leg edema. No calf tenderness. Skin: No rash, ulcer, cellulitis. Lymphatics: No lymph node enlargement in neck, supraclavicular, infraclavicular region. Neuro: No focal neurological deficit. Chest: Unremarkable. External Genitalia: Deferred. Rectal: Deferred. Laboratory Data: Last night, white count 10.8, hemoglobin 13.2, platelets 258. This morning white c ount 9.5, hemoglobin 12.7, platelets 239. Arterial blood gas; pH 7.43, pCO2 38.8, pO2 281, oxygen sa turation 99.8% on 100% FiO2. Yesterday, sodium , potassium 3.2, chloride 105, bicarb 27, B UN 11, creatinine 0.76, glucose 110. Liver function tests unremarkable. ProBNP 709. This morning s odium 138, potassium 3.8, chloride 102, bicarb 29, BUN 10, creatinine 0.84, glucose 198. ProBNP 530. Influenza A and B and COVID-19 test negative. CAT scan of the chest per PE protocol negative for p ulmonary embolism. Presence of peribronchial thickening and prominent interstitial marking, could be infiltrate. Chest x-ray, no acute cardiopulmonary changes. Impression: 1.Acute exacerbation of chronic obstructive pulmonary disease. 2.Pneumonia. 3.Hypertension. 4.Hyperlipidemia. 5.Gastroesophageal reflux disease. Plan: Admit patient to hospital for further evaluation and management of this problem. Patient is a ppropriate for inpatient and is expected to spend 2 midnights in hospital. We will start DVT prophyl axis using Lovenox per order. Continue home medications per order. We will give nebulizer treatment using albuterol and Atrovent every 6 hours and IV steroid will be given per order. Empiric antibiot ic was started using Levaquin and I will see her tomorrow for followup. Details and plan of treatmen t discussed with her ends. RITA/MODL Voice ID: [id number]
[2021-11-12] MEDS: METOPROLOL XL 50 MG TAB PO SCH (10:00)
[2021-11-12] MEDS: SERTRALINE HCL 50 MG TAB PO SCH (10:00)
[2021-11-12] MEDS: ASPIRIN EC 81 MG TAB PO SCH (10:00)
[2021-11-12] MEDS: ENOXAPARIN 40 MG/0.4 ML SQ SCH (10:11)
[2021-11-12] MEDS: METHYLPREDNISOLONE 125 MG INJ IV SCH (17:00)
[2021-11-12] MEDS: Levofloxacin500mg IV 500 MG/100 ML BAG IV SCH (20:16)
[2021-11-12] MEDS: GUAIFENESIN/DM 5 ML UCUP PO PRN (20:17)
[2021-11-12] MEDS: ROSUVASTATIN 10 MG TAB PO SCH (20:17)
[2021-11-12] MEDS: PANTOPRAZOLE 40MG TABLET PO SCH (21:52)
--- NOTE | 2021-11-13 00:48 | PN ---
Date of Progress Note: 11/12/2021 Subjective: The patient was seen this morning for followup. No new complaints or problems reported by her. The patient remains on nasal cannula oxygen. Denies any new complaints, problems. Overall, she feels better. Objective: Vital Signs: Reviewed. HEENT: Unremarkable. Lungs: Clear to auscultation. Heart: Sounds normal. Abdomen: Soft. Bowel sounds normal. No guarding, rigidity, tenderness, or distention. Extremities: No leg edema. Laboratory Data: No new labs today. Impression: 1.Acute exacerbation of chronic obstructive pulmonary disease. 2.Pneumonia. 3.Acute respiratory failure with hypoxia. 4.Hypertension. Plan: We will continue oxygen replacement. Continue current antibiotic, steroids. Ambulation was e ncouraged. Continue current antihypertensive medication and DVT prophylaxis. I will see her tomorro w for followup, possible discharge, to go home tomorrow if we are able to wean off oxygen today. RITA/MODL Voice ID: [id number] Report ID: [id number]
[2021-11-13] MEDS: ALBUTEROL 2.5 MG/3 ML NEB SOL NEB SCH ×2 (01:23→08:04)
[2021-11-13] MEDS: IPRATROPIUM BROM 0.5MG/2.5ML NEB SCH ×2 (01:23→08:04)
[2021-11-13] MEDS: GUAIFENESIN/DM 5 ML UCUP PO PRN (01:27)
[2021-11-13] MEDS: METHYLPREDNISOLONE 125 MG INJ IV SCH ×2 (01:28→09:00)
[2021-11-13] MEDS: SERTRALINE HCL 50 MG TAB PO SCH (09:00)
[2021-11-13] MEDS: METOPROLOL XL 50 MG TAB PO SCH (09:00)
[2021-11-13] MEDS: ENOXAPARIN 40 MG/0.4 ML SQ SCH (09:00)
[2021-11-13] MEDS: ASPIRIN EC 81 MG TAB PO SCH (09:00)
[2021-11-13 09:05] VITALS: O2SAT 93
[2021-11-13] MEDS ORDERED: predniSONE 10 MG TAB PO ONE (09:28)
[2021-11-13 09:37] VITALS: BP 132/63; TEMP 96.8
--- NOTE | 2021-11-14 10:15 | DS ---
Date of Discharge: 11/13/2021 History: Patient was seen this morning for followup. She was sitting at bedside, not in any distres s. Physical Examination: Vital Signs: Reviewed. HEENT: Unremarkable. Lungs: Clear to auscultation. No wheezing. No rales. Heart: Sounds normal. Abdomen: Soft. Bowel sounds normal. No guarding, rigidity, tenderness, distention. Extremities: No leg edema. Laboratory Data: On 11/10/2021, white count 10.8, hemoglobin 13.2, platelets 258 and on 11/11/2021, white count 9.5, hemoglobin 12.7, platelets 239. Her chemistry on 11/10/2021, sodium 139, potassium 3.2, chloride 105, bicarb 27, BUN 11, creatinine 0.76, glucose 110. Liver function tests unremarkabl e and next day, sodium 138, potassium 3.8, chloride 102, bicarb 29, BUN 10, creatinine 0.84, glucose is 198. COVID-19 test was negative. CAT scan of the chest per PE protocol was negative for pulmonar y embolism. It did show presence of peribronchial thickening and prominent interstitial marking, cou ld be infiltrate. Chest x-ray, no acute cardiopulmonary changes. Final Diagnoses: 1.Acute exacerbation of chronic obstructive pulmonary disease. 2.Hypokalemia. 3.Pneumonia. 4.Hypertension. 5.Hyperlipidemia. 6.Gastroesophageal reflux disease. 7.Acute respiratory failure with hypoxia. Discharge Medications And Instructions: Continue all prior home medications. Take following any med ications. Prescription will be sent to pharmacy. 1.Levaquin 500 mg daily for 1 week. 2.Prednisone 10 mg, patient to take 3 tablets by mouth daily for 3 days, then 2 tablets by mouth darryn ly for 3 days, then 1 tablet by mouth daily for 3 days, then stop. 3.Follow up at my office next week on Tuesday or and call office for appointment. Hospital Course: This is a 66-year-old pleasant female patient, admitted to the hospital with cough, congestion, shortness of breath. Please see dictated H and P for more information. After the patie nt came into emergency room, she was evaluated and admitted to the hospital with acute exacerbation o f COPD and pneumonia problem. She was started on IV steroid, IV antibiotics, oxygen for hypoxia that was noted, and nebulizer treatment. Overall, her condition has improved. Patient required initiall y 1-2 L nasal cannula oxygen. Subsequently, we were able to wean off. This morning when I saw her, she was not using any oxygen. She has not used any oxygen since yesterd ay and has done very well. She reported that when respiratory therapist came to check on her oxygen saturation this morning, it was reported as 76, but she feels like it was due to loose connection bet ween pulse oximeter and her finger and she asked respiratory therapist to check her oxygen using diff erent finger and respiratory therapies refused to do so. Patient has her own pulse oximeter and she has been monitoring her own oxygen saturation and it is important to note that she did not feel any d ifferent when respiratory therapist told her about her oxygen saturation being 76%. She did not have any complaints. No shortness of breath, and she was feeling just fine like the way she was feeling when I saw her. During the time while I was in the room with her, her lowest oxygen saturation that had dropped down just for probably matter a few seconds, it was 89%, otherwise it has remained 90 or higher than 90% and even with talking at the moment she takes some deep breaths, it goes up to 95%. She understands the fact that she may require home oxygen at some point in the future, but not necess arily at this time and she will continue to monitor oxygen level at home. She has her rivet sorter whom she sees on a yearly basis. Last visit was about 2 months ago with her rivet sorter in [place] . At that time, her rivet sorter gave her Trelegy inhaler sample and I did encourage her to try Ahsan legy inhaler in place of her current inhaler that she is using at home with water 1 puff daily. The patient was encouraged that at home she should walk for 4 or 5 minutes every hour while she is awake during daytime and deep breathing exercise was also advised. Patient will be discharged to go home i n stable condition today and I will see her at office next week for followup. RITA/MODL Voice ID: [id number] Report ID: [id number]
== END 2021-11-13 10:50 | disposition home or self-care (01) | DRG 193 ==
LOC: ER 17:57 → ERHOLD 22:53 → 2ND 11-11 20:09
PROVIDERS: ADMIT Internal Medicine; ATTEND Internal Medicine
DX: J18.9 Pneumonia, unspecified organism (principal); J96.01 Acute respiratory failure with hypoxia; J44.1 Chronic obstructive pulmonary disease with (acute) exacerbation; J44.0 Chronic obstructive pulmonary disease with (acute) lower respiratory infection; E87.6 Hypokalemia; I10 Essential (primary) hypertension; E78.5 Hyperlipidemia, unspecified; K21.9 Gastro-esophageal reflux disease without esophagitis; M54.9 Dorsalgia, unspecified; Z20.822 Contact with and (suspected) exposure to COVID-19; Z79.899 Other long term (current) drug therapy; Z88.0 Allergy status to penicillin; Z87.891 Personal history of nicotine dependence; Z82.49 Family history of ischemic heart disease and other diseases of the circulatory system; Z80.0 Family history of malignant neoplasm of digestive organs
CPT/HCPCS: 0240U; 36415; 71045; 71275; 80048; 80076; 82805; 83880; 84484; 85025; 85610; 87040; 93005; 94640; 94760; 96365; 96375; 99285; J1650; J1940; J2920; J2930; Q9967

== ENCOUNTER 2022-06-28 09:31 | Inpatient (IN) | payer OTHER, MEDICARE ==
--- OUTSIDE RECORDS SUMMARY | 2022-06-28 09:37 | XMS REPORT | Continuity of Care Document ---
:1955 Author Organization [facility] t Address [address] [place] [address] [address] [place] [address] Care Team Providers Name Role Phone Dl Hinds MD Primary Care Physician EAN CALIX Attending Clinician Unavailable DL HINDS Attending Clinician Unavailable Erica Rodas MA Attending Clinician Unavailable Payers Payer Name Policy Type Policy Number Effective Date Expiration Date S bhargavi MEDICARE PART A AND [id number] 2020 B 00:00:00 [facility] [employer] [id number] 2021 00:00:00 Problems This patient has no known problems. Allergies, Adverse Reactions, Alerts Allergy Allergy Status Severity Reaction(s) Onset Inactive Treating Comm ents Source Name Type Date Date Clinician Penicill Allergy Active Hives [facility] ins to 5-25 Health substan 00:00: e 00 Social History Social Habit Start Date Stop Date Quantity Comments Source Exposure to Not sure [facility] SARS-CoV-2 (event) Tobacco use and 2021-09-09 2021-09-09 Smokeless tobacco [facility] exposure 00:00:00 00:00:00 non-user Sex Ass[birth year] [facility] 00:00:00 00:00:00 Smoking Status Start Date Stop Date Source Tobacco smoking consumption unknown [facility] Never smoked tobacco [facility] Medications Ordered Filled Start Stop Current Ordering Indication Dosage Frequency Signature Comments Components Source Medication Medication Date Date Medication? Clinician (SIG) Name Name amLODIPine Yes 5mg QD Take 5 mg [facility] (Norvasc) 5 1-31 by mouth 1 [facility] MG tablet 00:00: (one) time 00 each day. ondansetron 2022-0 Yes TAKE 1 [facility] (Zofran) 4 1-31 TABLET BY [facility] MG tablet 00:00: MOUTH 4 00 TIMES DAILY NEEDED FOR NAUSEA AND VOMITING amLODIPine 2022-0 Yes 5mg QD Take 5 mg [facility] (Norvasc) 5 -31 by mouth 1 [facility] MG tablet 00:00: (one) time 00 each day. ondansetron 2022-0 Yes TAKE 1 [facility] (Zofran) 4 1-31 TABLET BY [facility] MG tablet 00:00: MOUTH 4 00 TIMES DAILY NEEDED FOR NAUSEA AND VOMITING amLODIPine 2-0 Yes 5mg QD Take 5 mg [facility] (Norvasc) 5 -31 by mouth 1 [facility] al[facility] MG tablet 00:00: (one) time 00 each day. ondansetron 2022-0 Yes TAKE 1 [facility] (Zofran) 4 1-31 TABLET BY [facility] MG tablet 00:00: MOUTH 4 00 TIMES DAILY NEEDED FOR NAUSEA AND VOMITING amLODIPine 2-0 Yes 5mg QD Take 5 mg UT (Norvasc) 5 -31 by mouth 1 [facility] al[facility] MG tablet 00:00: (one) time 00 each day. ondansetron 2-0 Yes TAKE 1 UT (Zofran) 4 1-31 TABLET BY [facility] MG tablet 00:00: MOUTH 4 00 TIMES DAILY NEEDED FOR NAUSEA AND VOMITING amLODIPine 2022-0 Yes 5mg QD Take 5 mg UT (Norvasc) 5 -31 by mouth 1 He alth MG tablet 00:00: (one) time 00 each day. ondansetron 2022-0 Yes TAKE 1 [facility] (Zofran) 4 1-31 TABLET BY [facility] MG tablet 00:00: MOUTH 4 00 TIMES DAILY NEEDED FOR NAUSEA AND VOMITING predniSONE 2022-0 Yes 20mg QD Take 20 mg U T (Deltasone) 1-28 by mouth 1 He alth 20 MG 00:00: (one) time tablet 00 each day. TAKE 1 TABLET BY MOUTH ONCE DAILY FOR 14 DAYS predniSONE 2022-0 Yes 20mg QD Take 20 mg U [...] MOUTH ONCE DAILY FOR 14 DAYS predniSONE 0 Yes 20mg QD Take 20 mg U [...] QD Take 50 mg U T succinate -19 by mouth 1 [facility]al [facility] XL 00:00: [...] QD Take 50 mg U T succinate -19 by mouth 1 [facility]al [facility] XL 00:00: [...] QD Take 50 mg U T succinate -19 by mouth 1 [facility]al [facility] XL 00:00: [...] TAKE 1 UT (Zanaflex) 1-18 TABLET [address] [facility] 4 MG tablet 00:00: MOUTH 00 TWICE DAILY NEEDED FOR BACK PAIN tiZANidine 2020-08 Yes TAKE 1 UT (Zanaflex) 1-18 TABLET BY [facility] 4 MG tablet 00:00: MOUTH 00 TWICE DAILY NEEDED FOR BACK PAIN tiZANidine 2020-08 Yes TAKE 1 UT (Zanaflex) 1-18 TABLET [address] [facility] 4 MG tablet 00:00: MOUTH 00 TWICE DAILY NEEDED FOR BACK PAIN tiZANidine 2020-08 Yes TAKE 1 UT (Zanaflex) 1-18 TABLET [address] [facility] 4 MG tablet 00:00: MOUTH 00 TWICE DAILY NEEDED FOR BACK PAIN tiZANidine 1 Yes TAKE 1 UT (Zanaflex) 1-18 TABLET [address] [facility] 4 MG tablet 00:00: MOUTH 00 TWICE DAILY NEEDED FOR BACK PAIN Ilevro 0.3 2020-0 Yes UT % 8- Health suspension 00:00: 00 Ilevro 0.3 2020-0 Yes UT % 8 Health suspension 00:00: 00 Ilevro 0.3 2020-0 Yes UT % 8 Health suspension 00:00: 00 Ilevro 0.3 2020-0 Yes UT % 8- Health suspension 00:00: 00 Ilevro 0.3 2020-0 Yes UT % 8- Health suspension 00:00: 00 Durezol 2020-0 Yes UT 0.05 % 8- Health ophthalmic 00:00: solution 00 Durezol 2020-0 Yes UT 0.05 % 8- Health ophthalmic 00:00: solution 00 Durezol 2020-0 Yes UT 0.05 % 8-02 Health ophthalmic 00:00: solution 00 Durezol 2020-0 Yes UT 0.05 % 8-02 Health ophthalmic 00:00: solution 00 Durezol 2020-0 Yes UT 0.05 % 8-02 Health ophthalmic 00:00: solution 00 Vital Signs Vital Name Observation Time Observation Value Comments Source Systolic blood pressure 2021-09-07 20:23:00 109 mm[Hg] [facility] Diastolic blood pressure 2021-09-07 20:23:00 70 mm[Hg] [facility] Heart rate 2021-09-07 20:23:00 62 /min [facility] Body temperature 2021-09-07 20:23:00 36 Tiera [facility] Respiratory rate 2021-09-07 20:23:00 18 /min [facility] Body height 2021-09-07 20:23:00 157.5 cm [facility] Body weight 2021-09-07 20:23:00 72.576 kg [facility] BMI 2021-09-07 20:23:00 29.26 kg/m2 [facility] Oxygen saturation in 2021-09-07 20:23:00 97 /min [facility] Arterial blood by Pulse oximetry Procedures This patient has no known procedures. Encounters Start End Encounter Admission Attending Care Care Encounter Source Date/Time Date/Time Type Type Clinicians Facility Department ID 2021-09-28 Outpatient FIFI, [facility] [id number] [place] 09:14:43 CRISTOBAL [facility] ATOM 2021-09-08 Outpatient FIFI, [facility] [id number] [place] 13:35:10 CRISTOBAL [facility] ATOM 2021-09-07 Outpatient LIZET, [facility] [id number] [place] 15:29:23 [facility] 2020-12-06 Outpatient LIZET, [facility] [id number] [place] 04:02:37 [facility] 2021-11-16 2021-11-16 Office Fifi [facility] 6400 [id number] [place] 14:30:00 14:45:[address] [id number] [facility] [id number] 2021-09-28 2021-09-28 Office MARINA Calix 6400 [id number] [place] 09:00:00 09:13:[address] [id number] [facility] [id number] 2021-09-09 2021-09-09 Office Fifi [facility] 6400 [id number] [place] 13:45:00 14:00:[address] [id number] [facility] [id number] 2021-09-08 2021-09-08 Telephone Erica Rodas [facility] [id number] [place] 00:00:00 00:00:00 Erica Rodas [facility] [id number] [facility] [id number] 2021-09-07 2021-09-07 Office Lizet [facility] 6410 [id number] [place] 14:45:00 15:29:28 Visit Dl RAMIREZ [id number] [facility] [id number] Results This patient has no known results.
[2022-06-28] MEDS ORDERED: NA CHLORIDE 0.9% 3,000 ML ONE (10:15)
[2022-06-28] MEDS ORDERED: ONDANSETRON 4 MG/2 ML VIAL ONE (10:39)
[2022-06-28 10:45] LABS: Absolute Lymphocytes (CBC) 0.6 K/uL (0.7-4.9); Hematocrit 38.7 % (36.0-45.0); Lymphocytes % 4.1 % (15.3-44.8); MCV 74.4 fL (80-100); MPV 7.8 fL (7.6-11.3)
[2022-06-28] MEDS ORDERED: ALBUTEROL 2.5 MG/3 ML NEB SOL ONE ×3 (10:46→20:34)
[2022-06-28 10:50] LABS: Protime INR 1.4
[2022-06-28 11:02] LABS: Albumin 3.4 g/dL (3.4-5.0); Bilirubin Total 0.8 mg/dL (0.2-1.0); Potassium 3.4 mmol/L (3.5-5.1); Protein, Total 7.2 g/dL (6.4-8.2)
[2022-06-28] MEDS ORDERED: Levofloxacin500mg IV 500 MG/100 ML BAG IV ONE (11:07)
[2022-06-28 11:23] LABS: Urine Blood 2+ (Negative); Urine Glucose Negative (Negative); Urine Protein 2+ (Negative); Urine Specific Gravity >=1.030 (1.005-1.030)
[2022-06-28 11:28] LABS: SARS-COV-2 RT PCR NEGATIVE (NEGATIVE)
[2022-06-28 11:37] LABS: Urine Bacteria 20-50 /HPF (<20); Urine Mucus 3+ /HPF (None Seen)
--- NOTE | 2022-06-28 12:00 | RAD REPORT ---
EXAM DESCRIPTION: RAD - Chest Single View - 06/28/2022 10:20 am CLINICAL HISTORY: FEVER Chest pain. COMPARISON: Chest Single View dated 11/11/2021; Chest Single View dated 11/10/2021; Chest For Pe Angio dated 06/28/2022 FINDINGS: Portable technique limits examination quality. Increased hazy lung markings are seen in the right base likely a pneumonia. This appears superimposed on mild COPD. The heart is normal in size. No displaced fractures. IMPRESSION: Increased lung markings seen in the right base suspicious for infection/ developing pneu monia.
--- NOTE | 2022-06-28 12:13 | EDPHYS ---
Physician Documentation [facility] Name: Abigail Barlow Age: 66 yrs Sex: Female : 1955 Arrival Date: 06/28/2022 Time: 09:35 Bed 16 Private MD: Eliot Arzate C ED Physician Roger Joy HPI: 06/28 11:50 This 66 yrs old Female presents to ER via Ambulatory with complaints of Vomiting, snw Headache, Cough, Sore Throat. 11:50 pt had lens replacement surgery 2 months ago, has a vaginal ring, and has traveled back snw and forth to [place] recently. On Tuesday she became nauseated, over the weekend she has decompensated, is coughing, having a temperature, and her O2 sats have been in the 80's. Onset: The symptoms/episode began/occurred acutely. Severity of symptoms: At their worst the symptoms were severe in the emergency department the symptoms are unchanged. It is unknown whether or not the patient has had similar symptoms in the past. as noted. Historical: - Allergies: 09:53 PENICILLINS; ss - PMHx: 09:53 COPD; Hypertensive disorder; ss - Immunization history:: Client reports receiving the 2nd dose of the Covid vaccine. - Social history:: Smoking status: Patient denies any tobacco usage or history of. ROS: 10:06 Eyes: Negative for injury, pain, redness, and discharge. snw 10:06 Neck: Negative for injury, pain, and swelling, Cardiovascular: Negative for chest pain, palpitations, and edema. 10:06 Back: Negative for injury and pain, : Negative for injury, bleeding, discharge, and swelling, MS/Extremity: Negative for injury and deformity, Skin: Negative for injury, rash, and discoloration, Neuro: Negative for headache, weakness, numbness, tingling, and seizure. 10:06 Constitutional: Positive for body aches, chills, fatigue, fever, poor PO intake. 10:06 ENT: Positive for sore throat. 10:06 Respiratory: Positive for cough, shortness of breath. 10:06 Abdomen/GI: Positive for nausea, vomiting, and diarrhea. Exam: 10:03 Head/Face: Normocephalic, atraumatic. Eyes: Pupils equal round and reactive to light, snw extra-ocular motions intact. Lids and lashes normal. Conjunctiva and sclera are non-icteric and not injected. Cornea within normal limits. Periorbital areas with no swelling, redness, or edema. 10:03 Neck: Trachea midline, no thyromegaly or masses palpated, and no cervical lymphadenopathy. Supple, full range of motion without nuchal rigidity, or vertebral point tenderness. No Meningismus. Chest/axilla: Normal chest wall appearance and motion. Nontender with no deformity. No lesions are appreciated. Cardiovascular: Regular rate and rhythm with a normal S1 and S2. No gallops, murmurs, or rubs. Normal PMI, no JVD. No pulse deficits. 10:03 Abdomen/GI: Soft, non-tender, with normal bowel sounds. No distension or tympany. No guarding or rebound. No evidence of tenderness throughout. Back: No spinal tenderness. No costovertebral tenderness. Full range of motion. MS/ Extremity: Pulses equal, no cyanosis. Neurovascular intact. Full, normal range of motion. Neuro: Awake and alert, GCS 15, oriented to person, place, time, and situation. Cranial nerves II-XII grossly intact. Motor strength 5/5 in all extremities. Sensory grossly intact. Cerebellar exam normal. Normal gait. 10:03 Constitutional: The patient appears alert, anxious, frail, uncomfortable. 10:03 ENT: Mouth: Oral mucosa: dry, Posterior pharynx: Dental exam: Voice: is normal. 10:03 Respiratory: the patient does not display signs of respiratory distress, Respirations: shallow respirations, that is mild, Breath sounds: rhonchi, that are moderate, are heard diffusely, are heard in the right posterior middle lobe. 10:03 Skin: Appearance: Color: dusky, Temperature: normal temperature, Moisture: dry. Vital Signs: 09:48 BP 178 / 89; Pulse 99; Resp 20; Temp 99.5(O); Pulse Ox 84% on R/A; Weight 71.67 kg; ss Height 5 ft. 2 in. (157.48 cm); Pain 0/10; 10:42 BP 134 / 83; Pulse 83; Resp 24; Pulse Ox 96% on 2 lpm NC; ld1 11:25 BP 150 / 76; Pulse 98; Resp 28; Pulse Ox 96% on 2 lpm NC; ld1 15:04 BP 112 / 50; Pulse 94; Resp 20; Pulse Ox 96% on 3 lpm NC; ld1 17:00 BP 119 / 51; Pulse 89; Resp 23; Pulse Ox 96% on 3 lpm NC; ld1 18:43 BP 130 / 57; Pulse 89; Resp 24; Pulse Ox 95% on 2 lpm NC; ld1 09:48 Body Mass Index 28.90 (71.67 kg, 157.48 cm) ss MDM: 09:43 Patient medically screened. snw 12:13 Data reviewed: vital signs, nurses notes. Data interpreted: Pulse oximetry: on room air snw is 84 %. Interpretation: hypoxia. Plan: O2 by NC applied. Counseling: I had a detailed discussion with the patient and/or guardian regarding: the historical points, exam findings, and any diagnostic results supporting the discharge/admit diagnosis, the presence of at least one elevated blood pressure reading (>120/80) during this emergency department visit, lab results, radiology results, the need for further work-up and treatment in the hospital. Physician consultation: A Carito SMITH was called at 12:13, regarding admission, to the telemetry unit. 06/28 09:56 Order name: Blood Culture Adult (2); Complete Time: 16:28 snw 06/28 09:56 Order name: CBC with Diff; Complete Time: 10:50 snw 06/28 09:56 Order name: CMP; Complete Time: 11:03 snw 06/28 09:56 Order name: Lactate w/ 2H reflex if indic.; Complete Time: 11:03 snw 06/28 09:56 Order name: Protime (+inr); Complete Time: 10:51 snw 06/28 09:56 Order name: Ptt, Activated; Complete Time: 10:51 snw 06/28 09:56 Order name: Urine Culture; Complete Time: 16:28 snw 06/28 09:56 Order name: Urine Microscopic Only; Complete Time: 11:41 snw 06/28 09:56 Order name: COVID-19/FLU A+B/RSV; Complete Time: 11:41 snw 06/28 10:53 Order name: Glucose, Ancillary Testing; Complete Time: 10:54 EDMS 06/28 11:23 Order name: Urine Dipstick-Ancillary; Complete Time: 11:24 EDMS 06/28 12:22 Order name: NT PRO-BNP; Complete Time: 14:02 EDMS 06/28 12:22 Order name: Urinalysis EDMS 06/28 12:22 Order name: Basic Metabolic Panel EDMS 06/28 12:22 Order name: Basic Metabolic Panel EDMS 06/28 12:22 Order name: CBC with Automated Diff EDMS 06/28 12:22 Order name: CBC with Automated Diff; Complete Time: 16:28 EDMS 06/28 12:22 Order name: Comprehensive Metabolic Panel EDMS 06/28 12:22 Order name: Comprehensive Metabolic Panel; Complete Time: 16:28 EDMS 06/28 12:22 Order name: Lipid Profile EDMS 06/28 12:22 Order name: Lipid Profile; Complete Time: 16:28 EDMS 06/28 12:22 Order name: Magnesium EDMS 06/28 12:22 Order name: Magnesium; Complete Time: 16:28 EDMS 06/28 12:22 Order name: Phosphorus EDMS 06/28 12:22 Order name: Phosphorus; Complete Time: 16:28 EDMS 06/28 12:22 Order name: Protime (+INR) EDMS 06/28 12:22 Order name: Protime (+INR); Complete Time: 16:28 EDMS 06/28 12:22 Order name: PTT, Activated Partial Thromb EDMS 06/28 12:22 Order name: PTT, Activated Partial Thromb; Complete Time: 16:28 EDMS 06/29 02:51 Order name: Glucose, Ancillary Testing; Complete Time: 16:28 [facility] 06/28 09:56 Order name: Chest Single View XRAY; Complete Time: 12:05 [facility] 06/28 09:56 Order name: EKG; Complete Time: 09:57 sn 06/28 09:56 Order name: Accucheck; Complete Time: 10:42 snw 06/28 09:56 Order name: Cardiac monitoring; Complete Time: 10:42 snw 06/28 09:56 Order name: EKG - Nurse/Tech; Complete Time: 10:42 snw 06/28 09:56 Order name: IV Saline Lock - Large Bore; Complete Time: 10:42 snw 06/28 09:56 Order name: Labs collected and sent; Complete Time: 10:42 snw 06/28 09:56 Order name: O2 Per Protocol; Complete Time: 10:42 snw 06/28 09:56 Order name: O2 Sat Monitoring; Complete Time: 10:42 snw 06/28 09:56 Order name: Urine Dipstick-Ancillary (obtain specimen); Complete Time: 11:24 snw 06/28 09:56 Order name: Vital Signs; Complete Time: 10:42 snw 06/28 09:56 Order name: CT Chest For PE Angio; Complete Time: 12:21 snw 06/28 12:22 Order name: Heart Healthy EDMS 06/29 16:49 Order name: Glucose, Ancillary Testing; Complete Time: 16:28 EDMS EC:30 Rate is 89 beats/min. Rhythm is regular. QRS [place] is Normal. UT interval is normal. QRS snw interval is normal. QT interval is normal. Clinical impression: NSR w/ Non-specific ST/T Changes. Administered Medications: 10:42 Drug: NS 0.9% (30 ml/kg) 30 ml/kg Route: IV; Rate: bolus; Site: right antecubital; ld1 11:48 Follow up: IV Status: Completed infusion ld1 10:44 Drug: Albuterol 2.5 mg Route: Inhalation; ld1 11:47 Follow up: Response: No adverse reaction ld1 10:44 Drug: Zofran (Ondansetron) 4 mg Route: IVP; Site: right antecubital; ld1 11:47 Follow up: Response: No adverse reaction; Nausea is decreased ld1 11:24 Drug: LevaQUIN (levofloxacin) 500 mg Volume: 100 ml; Route: IVPB; Infused Over: 60 ld1 mins; Site: right antecubital; Disposition: 19:30 Co-signature as Attending Physician, Roger CERVANTES was immediately available on-site ms3 in the Emergency Department for consultation in the care of the patient.. Disposition Summary: 06/28/22 12:13 Hospitalization Ordered Hospitalization Status: Inpatient Admission snw Provider: Eliot Arzate snw Condition: Fair snw Problem: new snw Symptoms: are unchanged snw Bed/Room Type: Standard snw Location: Telemetry/MedSurg (Inpatient)(06/30/22 08:09) mignon Room Assignment: 210(06/30/22 08:09) mignon Diagnosis - Pneumonia, unspecified organism snw - Hypoxemia snw - Dehydration snw Forms: - Medication Reconciliation Form snw - SBAR form snw Signatures: Dispatcher [employer] EDMarta Sharpe, MEDICAL OPERATIONS SUPERVISOR-C MEDICAL OPERATIONS SUPERVISOR-Erickaw Aleyda Vidal RN RN Chey Contreras RN RN Tim Aleman RN RN ja1 Roger Joy, DO ms3 Coreen Kim RN RN ld1 Corrections: (The following items were deleted from the chart) 12:13 Telemetry/MedSurg (Inpatient) snw 12:13 snw 06/30 08:09 06/28 19:43 [facility] ER HOLD ja1 06/30 08:06/28 19:43 ERHOLD- ja
--- NOTE | 2022-06-28 12:13 | ER ---
Nurse's Notes [facility] Name: Abigail Barlow Age: 66 yrs Sex: Female : 1955 Arrival Date: 06/28/2022 Time: 09:35 Bed 16 Private MD: Eliot Arzate C Diagnosis: Pneumonia, unspecified organism;Hypoxemia;Dehydration Presentation: 06/28 09:48 Chief complaint: Patient states: N/V, cough and fever that began over the weekend. ss Coronavirus screen: Client denies travel out of the [place] in the last 14 days. Ebola Screen: Patient denies exposure to infectious person. Patient denies travel to an Ebola-affected area in the 21 days before illness onset. Initial Sepsis Screen: Does the patient meet any 2 criteria? HR > 90 bpm. No. Patient's initial sepsis screen is negative. Does the patient have a suspected source of infection? Yes: Productive cough/pneumonia No. Patient's initial sepsis screen is negative. Risk Assessment: Do you want to hurt yourself or someone else? Patient reports no desire to harm self or others. Onset of symptoms was June 25, 2022. 09:48 Method Of Arrival: Ambulatory 09:48 Acuity: JOAN 2 ss Historical: - Allergies: 09:53 PENICILLINS; ss - PMHx: 09:53 COPD; Hypertensive disorder; ss - Immunization history:: Client reports receiving the 2nd dose of the Covid vaccine. - Social history:: Smoking status: Patient denies any tobacco usage or history of. Screenin:42 Abuse screen: Denies threats or abuse. Denies injuries from another. Nutritional ld1 screening: No deficits noted. Tuberculosis screening: No symptoms or risk factors identified. Fall Risk None identified. Assessment: 10:42 General: Appears in no apparent distress. comfortable, Behavior is calm, cooperative, ld1 appropriate for age. Pain: Denies pain. Neuro: Level of Consciousness is awake, alert, obeys commands, Oriented to person, place, time, situation, Appropriate for age. Cardiovascular: Capillary refill < 3 seconds Patient's skin is warm and dry. Rhythm is sinus rhythm. Respiratory: Airway is patent Respiratory effort is even, unlabored. GI: Abdomen is flat, non-distended, Reports nausea, vomiting. : No signs and/or symptoms were reported regarding the genitourinary system. EENT: No signs and/or symptoms were reported regarding the EENT system. Derm: No signs and/or symptoms reported regarding the dermatologic system. Musculoskeletal: No signs and/or symptoms reported regarding the musculoskeletal system. 15:04 Reassessment: Patient appears in no apparent distress at this time. Patient is alert, ld1 oriented x 3, equal unlabored respirations, skin warm/dry/pink. 19:24 General: Appears in no apparent distress. comfortable, Behavior is calm, cooperative, aa9 appropriate for age. Neuro: Level of Consciousness is awake, alert, obeys commands, Oriented to person, place, time, situation, Appropriate for age. Respiratory: Airway is patent Respiratory effort is even, unlabored. GI: No signs and/or symptoms were reported involving the gastrointestinal system. : No signs and/or symptoms were reported regarding the genitourinary system. Vital Signs: 09:48 BP 178 / 89; Pulse 99; Resp 20; Temp 99.5(O); Pulse Ox 84% on R/A; Weight 71.67 kg; ss Height 5 ft. 2 in. (157.48 cm); Pain 0/10; 10:42 BP 134 / 83; Pulse 83; Resp 24; Pulse Ox 96% on 2 lpm NC; ld1 11:25 BP 150 / 76; Pulse 98; Resp 28; Pulse Ox 96% on 2 lpm NC; ld1 15:04 BP 112 / 50; Pulse 94; Resp 20; Pulse Ox 96% on 3 lpm NC; ld1 17:00 BP 119 / 51; Pulse 89; Resp 23; Pulse Ox 96% on 3 lpm NC; ld1 18:43 BP 130 / 57; Pulse 89; Resp 24; Pulse Ox 95% on 2 lpm NC; ld1 09:48 Body Mass Index 28.90 (71.67 kg, 157.48 cm) ED Course: 09:35 Patient arrived in ED. rg4 09:35 Eliot Arzate MD is Private Physician. rg4 09:43 [facility]ruett [facility]-C [facility] snw 09:43 Roger Joy DO is Attending Physician. snw 09:53 Triage completed. ss 09:53 Arm band placed on right wrist. ss 10:10 Coreen Kim, RN is Primary Nurse. ld1 10:22 Chest Single View XRAY In Process Unspecified. EDMS 10:42 Patient has correct armband on for positive identification. Placed in gown. Bed in low ld1 position. Call light in reach. Side rails up X2. drop forger helper on. Pulse ox on. NIBP on. Door closed. Noise minimized. Warm blanket given. 10:42 COVID-19/FLU A+B/RSV Sent. ld1 10:42 No provider procedures requiring assistance completed. Inserted saline lock: 20 gauge ld1 in right antecubital area, using aseptic technique. Blood collected. 11:24 Urine Microscopic Only Sent. ld1 11:24 Urine Culture Sent. ld1 11:52 CT Chest For PE Angio In Process Unspecified. EDMS 11:56 Note: PT HOOKED UP TO EVERYTHING EXCEPT FOR IV PUMP. Patient moved back from CT. md2 12:12 Eliot Arzate MD is Hospitalizing Provider. snw 20:15 Patient admitted, IV remains in place. aa9 06/29 07:33 Subsequent Med Neb Given as ordered Patient was reinforced on procedure Patient eb2 tolerated procedure well without adverse effect. O2 via nasal cannula \\T\\ 2L/min. Education provided to the patient regarding: Other: Patient educated on scheduled breathing treatments. Respiratory: Breath sounds are clear bilaterally. Denies shortness of breath at rest, Other: No distress noted at this time. Patient stated "she feels better". RN at bedside. 13:51 Subsequent Med Neb Given as ordered Patient tolerated procedure well without adverse eb2 effect. O2 via nasal cannula \\T\\ 2L/min. Education provided to the patient regarding:. Respiratory: Breath sounds are clear bilaterally. Denies shortness of breath at rest. Administered Medications: 06/28 10:42 Drug: NS 0.9% (30 ml/kg) 30 ml/kg Route: IV; Rate: bolus; Site: right antecubital; ld1 11:48 Follow up: IV Status: Completed infusion ld1 10:44 Drug: Albuterol 2.5 mg Route: Inhalation; ld1 11:47 Follow up: Response: No adverse reaction ld1 10:44 Drug: Zofran (Ondansetron) 4 mg Route: IVP; Site: right antecubital; ld1 11:47 Follow up: Response: No adverse reaction; Nausea is decreased ld1 11:24 Drug: LevaQUIN (levofloxacin) 500 mg Volume: 100 ml; Route: IVPB; Infused Over: 60 ld1 mins; Site: right antecubital; Medication: 10:42 VIS not applicable for this client. ld1 Outcome: 12:13 Decision to Hospitalize by Provider. snw 20:15 Admitted to ER Hold. Please see [facility] for further documentation. aa9 20:15 Condition: stable 20:15 Instructed on the need for admit. 06/30 10:24 Patient left the ED. db Signatures: Dispatcher [employer] EDMS Marta Pruett, MANAGER OF TIRES SALES-C MANAGER OF [employer]IRES SALES-Csnw Aleyda Vidal, RN RN ss Johanny Contreras rg4 Claudette Baxter, R/T R/T eb2 Coreen Kim RN RN ld1 Holly Chery RN RN aa9 Nancy Ha, RN RN db Rita Mcmahan md2
--- NOTE | 2022-06-28 12:14 | RAD REPORT ---
EXAM DESCRIPTION: CT - Chest For Pe Angio - 06/28/2022 11:50 am CLINICAL HISTORY: Chest pain. travel, hormones, recent surg, low sats COMPARISON: Chest For Pe Angio dated 11/10/2021 TECHNIQUE: CT angiogram of the pulmonary arteries was performed with MIP. All CT scans are performed using dose optimization technique as appropriate and may include automated exposure control or mA/KV adjustment according to patient size. FINDINGS: No evidence of pulmonary thromboembolism. No acute aortic finding demonstrated. Rete particular opacities are present in the right lower lobe, greatest medially Chaim most compatible with infection/pneumonia. Mild subsegmental atelectasis is present in the lingula. No significant pericardial or pleural fluid. Moderate hiatal hernia. Saig-xl-kdngppju lymphadenopathy seen in the mediastinum and hilar regions. No concerning bony finding. IMPRESSION: No evidence of pulmonary thromboembolism. Reticular opacities and mild consolidated portions of the right lung are seen in the right lower lobe most likely representing pneumonia. Mildly enlarged mediastinal and hilar lymphadenopathy presumably reactive.
[2022-06-28] MEDS ORDERED: ONDANSETRON 4 MG/2 ML VIAL IV PRN (12:15)
[2022-06-28] MEDS ORDERED: ACETAMINOPHEN 500 MG TAB PO PRN (12:15)
[2022-06-28] MEDS ORDERED: MAGNESIUM HYDROXIDE 8% 30 ML PO PRN (12:15)
[2022-06-28] MEDS: NA CHLORIDE 0.9% 1,000 ML IV SCH ×2 (13:00→23:00)
[2022-06-28] MEDS: Levofloxacin 750mg IV 750 MG/150 ML BAG IV SCH (13:00)
[2022-06-28] MEDS: ALBUTEROL 2.5 MG/3 ML NEB SOL NEB SCH ×2 (14:00→20:40)
[2022-06-28] MEDS ORDERED: NA CHLORIDE 0.9% 1,000 ML ONE (20:55)
[2022-06-28] MEDS ORDERED: PANTOPRAZOLE 40MG TABLET PO ONE ×2 (21:46→22:14)
[2022-06-29] MEDS: ALBUTEROL 2.5 MG/3 ML NEB SOL NEB SCH ×4 (01:45→21:00)
[2022-06-29] MEDS ORDERED: ALBUTEROL 2.5 MG/3 ML NEB SOL ONE ×4 (01:46→21:01)
[2022-06-29 03:06] LABS: Absolute Lymphocytes (CBC) 1.1 K/uL (0.7-4.9); Hematocrit 32.1 % (36.0-45.0); Lymphocytes % 7.3 % (15.3-44.8); MCV 74.9 fL (80-100); RBC Red Blood Cell Count 4.29 M/uL (3.86-4.86)
[2022-06-29 03:08] LABS: Protime INR 1.45
[2022-06-29 03:30] LABS: Albumin 2.8 g/dL (3.4-5.0); Bilirubin Total 0.7 mg/dL (0.2-1.0); Phosphorus 2.9 mg/dL (2.5-4.9); Potassium 3.7 mmol/L (3.5-5.1); Protein, Total 6.1 g/dL (6.4-8.2)
--- NOTE | 2022-06-29 07:26 | HP ---
Date of Admission: 06/28/2022 Chief Complaint: Nausea, vomiting, cough, congestion. History Of Present Illness: Ms. Barlow is a pleasant 66-year-old female patient, who came into emergency room after she called the office complaining of nausea, vomiting, cough, congestion, and shortness of breath. She was advised to come to ER. After she was evaluated in the emergency room, she was admitted to the hospital with pneumonia problem. I saw her in the emergency room. Her was with her at bedside. Allergies: TO PENICILLIN, CAUSING RASH. Medications: Tizanidine 4 mg 2 times a day as needed for back pain; sertraline 50 mg daily; rosuvastatin 20 mg daily; Zofran 4 mg tablet, takes 4 times a day as needed for nausea, vomiting; Prevacid 15 mg daily at bedtime; Trelegy inhaler 1 puff daily, Ventolin inhaler as needed. Review of Systems: GI: As mentioned above. Respiratory: As mentioned above. All other systems reviewed and negative. Past Medical History: The patient had COVID-19 infection in March of this year, otherwise past medical history significant for COPD, hypertension, hyperlipidemia, gastroesophageal reflux disease, back pain. Past Surgical History: Cataract surgery. Family History: Father , details unknown. Mother is alive and well. Sister has colon cancer and hypertension. Social History: Prior history of smoking, not at present time. Use of alcohol, occasional glass of wine. Physical Examination: Vital Signs: Height 5 feet, 2 inches, weight 156 pounds, temperature 98.3, pulse 90, respiratory rate 24, blood pressure 121/54, oxygen saturation 93%. General: Awake, alert, oriented, not in distress. HEENT: Head atraumatic, normocephalic. Conjunctivae nonerythematous. Sclerae white. Mouth, no thrush or edema noted. Ears/Nose, no mass, lesion, discharge noted. Neck: Supple. No JVD, lymph nodes, bruit, thyromegaly noted. Lungs: Presence of rales noted in lower half of right lung field. Patient not using any accessory muscles of respiration at rest. Heart: Normal heart sounds, no murmur or gallop. Abdomen: Soft, bowel sounds normal. No guarding, rigidity, tenderness, mass, hepatosplenomegaly, distention, or bruit noted. Extremities: No leg edema. No calf tenderness. Skin: No rash, ulcer, cellulitis. Lymphatics: No lymph node enlargement in neck, supraclavicular, infraclavicular region. Neuro: No focal neurological deficit. Chest: Unremarkable. External Genitalia: Deferred. Rectal: Deferred. Laboratory Data: Sodium 136, potassium 3.4, chloride 105, bicarb 26, BUN 13, creatinine 0.66, glucose 102. Liver function is normal. Urinalysis; 2+ blood, trace leukocyte esterase, 5-10 wbc's, 20-50 bacteria. Influenza A, B, RSV and COVID-19 test negative. White count 15.1, hemoglobin 12.3, platelets 243. Impression: 1. Pneumonia. 2. Acute exacerbation of chronic obstructive pulmonary disease. 3. Acute respiratory failure with hypoxia. 4. Hypertension. 5. Hyperlipidemia. 6. Gastroesophageal reflux disease. 7. Chronic back pain. Plan: Admit patient to hospital for further evaluation and management of this problem. The patient is appropriate for inpatient and is expected to spend 2 midnights in hospital. We will go ahead and continue oxygen replacement therapy. DVT prophylaxis will be given using Lovenox. The patient was started on antibiotic Levaquin, which we will continue that. For her gastroesophageal reflux disease, we will continue proton pump inhibitor therapy per order. For her hyperlipidemia, continue her statin therapy. Monitor blood pressure if necessary. Give antihypertensive medication, but at home, she does not take any such therapy. Details and plan of treatment discussed with the patient and her who was at bedside and I will see her tomorrow for followup. RITA/FABIÁN Voice ID: [id number] MTDD
[2022-06-29] MEDS ORDERED: ENOXAPARIN 40 MG/0.4 ML SQ ONE (08:10)
[2022-06-29] MEDS ORDERED: METHYLPREDNISOLONE 40 MG INJ ONE ×2 (08:30→20:04)
[2022-06-29] MEDS: NA CHLORIDE 0.9% 1,000 ML IV SCH ×2 (09:00→20:23)
[2022-06-29] MEDS: DULERA 200/5 (MOMETASONE/FORMOTEROL) INHALER IH SCH ×2 (09:00→20:27)
[2022-06-29] MEDS: METHYLPREDNISOLONE 40 MG INJ IV SCH ×2 (09:00→20:28)
[2022-06-29] MEDS: ENOXAPARIN 40 MG/0.4 ML SQ SCH (09:00)
[2022-06-29] MEDS ORDERED: BENZONATATE 100 MG CAP PO ONE ×2 (12:34→20:12)
[2022-06-29] MEDS: BENZONATATE 100 MG CAP PO PRN ×2 (12:38→20:28)
[2022-06-29] MEDS: Levofloxacin 750mg IV 750 MG/150 ML BAG IV SCH (13:00)
[2022-06-29 13:17] VITALS: BMI 28.5
[2022-06-29] MEDS ORDERED: Levofloxacin 750mg IV 750 MG/150 ML BAG IV ONE (15:06)
[2022-06-29] MEDS ORDERED: PANTOPRAZOLE 40MG TABLET PO ONE (20:04)
[2022-06-29] MEDS ORDERED: NA CHLORIDE 0.9% 1,000 ML ONE (20:04)
[2022-06-29] MEDS: PANTOPRAZOLE 40MG TABLET PO SCH (20:27)
[2022-06-30] MEDS: ALBUTEROL 2.5 MG/3 ML NEB SOL NEB SCH ×4 (02:10→20:05)
[2022-06-30] MEDS ORDERED: ALBUTEROL 2.5 MG/3 ML NEB SOL ONE ×2 (02:11→07:40)
--- NOTE | 2022-06-30 10:39 | PN ---
Date of Progress Note: 06/29/2022 Subjective: The patient was seen this morning for followup. No new complaints or problems reported by the patient. Lying in bed, not in distress. Overall, she feels better compared to yesterday. Objective: Vital Signs: Reviewed. HEENT: Unremarkable. Lungs: Clear to auscultation. Heart: Sounds normal. Abdomen: Soft. Bowel sounds normal. No guarding, rigidity, tenderness, distention. Extremities: No leg edema. Laboratory Data: White count 14.8, hemoglobin 10, platelets 196. Sodium 139, potassium 3.7, chlorid e 107, bicarb 26, BUN 12, creatinine 0.58, glucose 90. Impression: 1.Acute exacerbation of chronic obstructive pulmonary disease. 2.Acute respiratory failure with hypoxia. 3.Anemia. Plan: We will go ahead and start the patient on IV steroid, Solu-Medrol 40 mg every 12 hours and Dul era inhaler per order. Continue oxygen replacement therapy. Continue current antibiotics. DVT prop hylaxis and I will see her tomorrow for followup. At home, she is not using any Trelegy inhaler as t he patient reports that it is very expensive and she is not able to afford it, so she is using Asmane x and Stiolto inhaler. We will see how she responds to Dulera inhaler. Otherwise, Leland Rios that we can consider that. RITA/MODL Voice ID: [id number] Report ID: [id number]
[2022-06-30] MEDS: ENOXAPARIN 40 MG/0.4 ML SQ SCH (11:18)
[2022-06-30] MEDS: METHYLPREDNISOLONE 40 MG INJ IV SCH ×2 (11:18→20:26)
[2022-06-30] MEDS: DULERA 200/5 (MOMETASONE/FORMOTEROL) INHALER IH SCH ×2 (11:19→20:26)
[2022-06-30] MEDS: NA CHLORIDE 0.9% 1,000 ML IV SCH ×2 (11:20→22:25)
[2022-06-30] MEDS: Levofloxacin 750mg IV 750 MG/150 ML BAG IV SCH (13:19)
--- NOTE | 2022-06-30 16:31 | EKG ---
Test Date: 2022-06-28 Test Time: 10:23:26 Electronics Production Supervisor: EDUAR MEASUREMENT RESULTS: Intervals: Rate: 89 IN: 140 QRSD: 80 QT: 358 QTc: 435 [place]: P: 24 IN: 140 QRS: 65 T: 73 INTERPRETIVE STATEMENTS: Normal sinus rhythm RSR' or QR pattern in V1 suggests right ventricular conduction delay Borderline ECG Compared to ECG 11/10/2021 20:34:10 RSR' in V1 or V2 now present Myocardial infarct finding no longer present Electronically Signed On 06-30-22 16:23:55 TEXTILE SLITTING MACHINE OPERATOR by Marcelo Ding
[2022-06-30] MEDS: PANTOPRAZOLE 40MG TABLET PO SCH (20:26)
[2022-06-30] MEDS: BENZONATATE 100 MG CAP PO PRN (20:28)
[2022-07-01] MEDS: NA CHLORIDE 0.9% 1,000 ML IV SCH (01:00)
[2022-07-01] MEDS: ALBUTEROL 2.5 MG/3 ML NEB SOL NEB SCH ×4 (01:25→19:45)
[2022-07-01] MEDS: BENZONATATE 100 MG CAP PO PRN ×2 (05:25→20:35)
--- NOTE | 2022-07-01 06:06 | PN ---
Date of Progress Note: 06/30/2022 Subjective: The patient was seen this morning for followup. No new complaints or problems reported by the patient. She was lying in bed, not in any distress, overall feels better. Remains on nasal c annula oxygen 2 to 3 L/minute. Objective: Vital Signs: Reviewed. HEENT: Unremarkable. Lungs: Presence of rales noted in the right lower lung field, unchanged from yesterday and with insp iration, she still appears to have some diminished air entry in both lung rose and with occasional cough. Appears to have some bronchospasm. Not using any accessory muscles of respiration at rest. Heart: Sounds normal. Abdomen: Soft. Bowel sounds normal. No guarding, rigidity, tenderness, distention. Extremities: No leg edema. Laboratory Data: No new labs today. Impression: 1.Pneumonia. 2.Acute exacerbation of chronic obstructive pulmonary disease. 3.Acute respiratory failure with hypoxia. Plan: We will go ahead and continue current oxygen replacement, wean off oxygen if saturation remain s more than 90%. Continue current antibiotic, IV steroid nebulizer treatment, and I will see her gregg orrow for followup. Continue current DVT prophylaxis. RITA/MODL Voice ID: [id number] Report ID: [id number]
--- NOTE | 2022-07-01 08:25 | RAD REPORT ---
EXAM DESCRIPTION: Farheen Pa And Lat (2 Views)07/01/2022 8:13 am CLINICAL HISTORY: Cough COMPARISON: June 28, 2022 FINDINGS: Mild worsening in right basilar lung opacities with small pleural effusion Left lung appears clear. Heart is normal size IMPRESSION: Mild worsening in a right pneumonia.
[2022-07-01] MEDS: METHYLPREDNISOLONE 40 MG INJ IV SCH ×2 (09:29→20:35)
[2022-07-01] MEDS: ENOXAPARIN 40 MG/0.4 ML SQ SCH (09:30)
[2022-07-01] MEDS: GUAIFENESIN/CODEINE 5ML UCUP PO PRN (09:32)
[2022-07-01] MEDS: DULERA 200/5 (MOMETASONE/FORMOTEROL) INHALER IH SCH ×2 (09:32→20:35)
[2022-07-01] MEDS: Levofloxacin 750mg IV 750 MG/150 ML BAG IV SCH (12:51)
[2022-07-01] MEDS: PANTOPRAZOLE 40MG TABLET PO SCH (20:35)
[2022-07-02] MEDS: ALBUTEROL 2.5 MG/3 ML NEB SOL NEB SCH ×4 (01:10→20:00)
[2022-07-02] MEDS ORDERED: FUROSEMIDE 20 MG/ 2ML VIAL IV ONE (06:35)
--- NOTE | 2022-07-02 06:36 | PN ---
Date of Progress Note: 07/01/2022 Subjective: The patient was seen this morning for followup. No new complaints or problems reported by the patient. Lying in bed, not in any distress. Still has cough with chest congestion, on oxygen 2 L/minute. Objective: Vital Signs: Reviewed. HEENT: Unremarkable. Lungs: Bilateral good equal entry with presence of rales noted in lower half of the right lung field s, unchanged from before. Heart: Sounds normal. Abdomen: Soft. Bowel sounds normal. No guarding, rigidity, tenderness, distention. Extremities: No leg edema. Laboratory Data: Chest x-ray done today after I saw the patient, results reviewed. Impression: 1.Pneumonia. 2.Acute exacerbation of chronic obstructive pulmonary disease. 3.Acute respiratory failure with hypoxia. Plan: We will go ahead and continue antibiotics, steroid, oxygen, nebulizer treatment, and inhaler p er order. Continue DVT prophylaxis. I will see her tomorrow for followup. Her IV fluid was discont inued today. RITA/MODL Voice ID: [id number] Report ID: [id number]
[2022-07-02] MEDS ORDERED: POTASSIUM CL SA 10 MEQ TAB PO ONE (06:37)
[2022-07-02] MEDS ORDERED: CEFTRIAXONE 1000 MG/VIAL ONE (08:04)
[2022-07-02] MEDS ORDERED: NA CHLORIDE 0.9% 50 ML ONE (08:07)
[2022-07-02] MEDS: METHYLPREDNISOLONE 40 MG INJ IV SCH ×2 (08:13→20:23)
[2022-07-02] MEDS: CEFTRIAXONE 1,000 MG in NA CHLORIDE 0.9% 50 ML IVPB SCH ×2 (08:13→21:20)
[2022-07-02] MEDS: ENOXAPARIN 40 MG/0.4 ML SQ SCH (08:13)
[2022-07-02] MEDS: DULERA 200/5 (MOMETASONE/FORMOTEROL) INHALER IH SCH ×2 (08:13→20:23)
[2022-07-02] MEDS: DOXYCYCLINE 100 MG in NA CHLORIDE 0.9% 100 ML IVPB SCH ×2 (08:43→20:24)
[2022-07-02] MEDS: PANTOPRAZOLE 40MG TABLET PO SCH (20:23)
--- NOTE | 2022-07-02 20:27 | PN ---
Date of Progress Note: 07/02/2022 Subjective: Patient was seen this morning for followup. No new complaints or problems reported by t he patient. She reports that so far her cough was dry, now she has productive cough. Objective: Vital Signs: Reviewed. HEENT: Unremarkable. Lungs: Bilateral good equal air entry. Presence of diminished air entry with rales in right lower h fci of lung rose. Not using accessory muscles of respiration. Heart: Sounds normal. Abdomen: Soft. Bowel sounds normal. No guarding, rigidity, tenderness, distention. Extremities: No leg edema. Impression: 1.Pneumonia. 2.Acute exacerbation of chronic obstructive pulmonary disease. Plan: We will go ahead and discontinue Levaquin and start the patient on ceftriaxone as well as doxy cycline. The patient is allergic to penicillin and it causes a rash type of side effect. We will co ntinue oxygen nebulizer treatment, IV steroid. Current DVT prophylaxis. I will see her tomorrow for followup. RITA/MODL Voice ID: [id number] Report ID: [id number]
[2022-07-02] MEDS: BENZONATATE 100 MG CAP PO PRN (21:19)
[2022-07-03] MEDS: ALBUTEROL 2.5 MG/3 ML NEB SOL NEB SCH ×4 (02:00→21:50)
[2022-07-03] MEDS: GUAIFENESIN/CODEINE 5ML UCUP PO PRN ×2 (02:14→18:26)
[2022-07-03 06:19] LABS: Absolute Lymphocytes (CBC) 0.6 K/uL (0.7-4.9); Hematocrit 33.5 % (36.0-45.0); Lymphocytes % 6.5 % (15.3-44.8); MCV 74.5 fL (80-100); MPV 8.1 fL (7.6-11.3); RBC Red Blood Cell Count 4.49 M/uL (3.86-4.86)
[2022-07-03 06:47] LABS: Magnesium 2.1 mg/dL (1.8-2.4); Potassium 3.7 mmol/L (3.5-5.1)
[2022-07-03 08:00] LABS: Blood Morphology Comment NOT SEEN (NOT SEEN); Platelet Estimate ADEQ
[2022-07-03] MEDS ORDERED: POTASSIUM CL SA 10 MEQ TAB PO ONE ×2 (09:00)
[2022-07-03] MEDS: DULERA 200/5 (MOMETASONE/FORMOTEROL) INHALER IH SCH ×2 (09:41→20:33)
[2022-07-03] MEDS: CEFTRIAXONE 1,000 MG in NA CHLORIDE 0.9% 50 ML IVPB SCH ×2 (09:42→20:32)
[2022-07-03] MEDS: METHYLPREDNISOLONE 40 MG INJ IV SCH ×2 (09:42→20:31)
[2022-07-03] MEDS: ENOXAPARIN 40 MG/0.4 ML SQ SCH (09:42)
[2022-07-03] MEDS: DOXYCYCLINE 100 MG in NA CHLORIDE 0.9% 100 ML IVPB SCH ×2 (09:43→20:32)
[2022-07-03] MEDS ORDERED: AMLODIPINE 5 MG TAB PO ONE (11:02)
[2022-07-03] MEDS: SERTRALINE HCL 50 MG TAB PO SCH (11:32)
--- NOTE | 2022-07-03 11:36 | RAD REPORT ---
EXAM DESCRIPTION: Farheen Pa And Lat (2 Views)07/03/2022 9:30 am CLINICAL HISTORY: Cough COMPARISON: July 01, 2022 FINDINGS: Mild improvement in the right lower lobe pneumonia Left lung appears clear of acute infiltrate. Heart is normal size
--- NOTE | 2022-07-03 15:39 | PN ---
Date of Progress Note: 07/03/2022 Subjective: The patient was seen this morning for followup. No new complaints or problems reported by the patient. Lying in bed, not in distress. She has mostly dry cough, but some time after trying really hard, she might be able to cough up some mucus, but otherwise mostly it is dry cough. Overal l, she feels better as far as her shortness of breath is concerned. Objective: Vital Signs: Reviewed. HEENT: Unremarkable. Lungs: Bilateral good equal air entry. Right side lung air entry has improved compared to last 2-3 days. The patient has some rales in the right lower lung region with diminished air entry in the rig ht lung basal region, but overall right lung findings are better. Heart: Heart sounds normal. Abdomen: Soft. Bowel sounds normal. No guarding, rigidity, tenderness, distention. Extremities: No leg edema. Laboratory Data: Chest x-ray from today reviewed, right sided pneumonia has shown improvement, but r ight sided pleural effusion shows worsening compared to previous x-ray 2-3 days ago. Impression: 1.Pneumonia. 2.Acute exacerbation of chronic obstructive pulmonary disease. 3.Acute respiratory failure with hypoxia. 4.Right-sided pleural effusion. 5.Hypertension. 6.Patient's blood pressure has been elevated. We will start low-dose blood pressure medication, aml odipine 5 mg daily and continue current oxygen replacement therapy, steroids, antibiotics and I will see her tomorrow for followup. Details and plan of treatment discussed with the patient. RITA/MODL Voice ID: [id number] Report ID: [id number]
[2022-07-03] MEDS: PANTOPRAZOLE 40MG TABLET PO SCH (20:31)
[2022-07-03] MEDS: ROSUVASTATIN 10 MG TAB PO SCH (20:31)
[2022-07-04] MEDS: ALBUTEROL 2.5 MG/3 ML NEB SOL NEB SCH ×4 (02:00→22:10)
[2022-07-04] MEDS: GUAIFENESIN/CODEINE 5ML UCUP PO PRN (03:42)
[2022-07-04 06:16] LABS: Potassium 4.2 mmol/L (3.5-5.1)
[2022-07-04] MEDS: DULERA 200/5 (MOMETASONE/FORMOTEROL) INHALER IH SCH ×2 (09:34→21:02)
[2022-07-04] MEDS: AMLODIPINE 5 MG TAB PO SCH (09:34)
[2022-07-04] MEDS: CEFTRIAXONE 1,000 MG in NA CHLORIDE 0.9% 50 ML IVPB SCH ×2 (09:35→21:01)
[2022-07-04] MEDS: ENOXAPARIN 40 MG/0.4 ML SQ SCH (09:35)
[2022-07-04] MEDS: METHYLPREDNISOLONE 40 MG INJ IV SCH ×2 (09:35→21:04)
[2022-07-04] MEDS: SERTRALINE HCL 50 MG TAB PO SCH (09:35)
[2022-07-04] MEDS: DOXYCYCLINE 100 MG in NA CHLORIDE 0.9% 100 ML IVPB SCH ×2 (10:25→21:54)
--- NOTE | 2022-07-04 12:26 | PN ---
Date of Progress Note: 07/04/2022 Subjective: Patient was seen this morning for followup. No new complaints, problems reported by yahaira north. Objective: General: Lying in bed, not in distress. Vital Signs: Reviewed. HEENT: Unremarkable. Lungs: Clear to auscultation. No rhonchi. No rales. Diminished air entry in the right lung base, unchanged from yesterday. Heart: Sounds normal. Abdomen: Soft. Bowel sounds normal. No guarding, rigidity, tenderness, distention. Extremities: No leg edema. Laboratory Data: Sodium 138, potassium 4.2, chloride 103, bicarb 32, BUN 22, creatinine 0.65, glucos e 173. Impression: 1.Pneumonia. 2.Right pleural effusion. 3.Chronic obstructive pulmonary disease. 4.Hypertension. Plan: We will go ahead and continue current medication. Continue current antibiotics, oxygen, nebul izer treatment, and steroids. Continue current inhaler. Patient was on 2 L nasal cannula oxygen whe n I saw her and I discontinued her oxygen and within 2-3 minutes on room air, her oxygen saturation a t rest dropped down to 87% and her oxygen was restarted at 2 L/minute. Patient's nurse was present i n the room during this room air oxygen test today. With that, patient will qualify for home oxygen a nd I have requested Social Service to make arrangements for home oxygen. Possible discharge to go home tomorrow. Meanwhile, we will antonieta nue current therapy. RITA/MODL Voice ID: [id number] Report ID: [id number]
[2022-07-04] MEDS ORDERED: LOSARTAN POTASSIUM 50 MG TABLET PO ONE (14:00)
[2022-07-04] MEDS: PANTOPRAZOLE 40MG TABLET PO SCH (21:01)
[2022-07-04] MEDS: ROSUVASTATIN 10 MG TAB PO SCH (21:01)
[2022-07-05] MEDS: ALBUTEROL 2.5 MG/3 ML NEB SOL NEB SCH ×2 (03:20→08:00)
[2022-07-05] MEDS ORDERED: CEFTRIAXONE 1000 MG/VIAL ONE (08:16)
[2022-07-05] MEDS ORDERED: NA CHLORIDE 0.9% 100 ML ONE (08:17)
[2022-07-05] MEDS: DULERA 200/5 (MOMETASONE/FORMOTEROL) INHALER IH SCH (08:21)
[2022-07-05] MEDS: ENOXAPARIN 40 MG/0.4 ML SQ SCH (08:22)
[2022-07-05] MEDS: DOXYCYCLINE 100 MG in NA CHLORIDE 0.9% 100 ML IVPB SCH (08:23)
[2022-07-05] MEDS: AMLODIPINE 5 MG TAB PO SCH (08:23)
[2022-07-05] MEDS: SERTRALINE HCL 50 MG TAB PO SCH (08:23)
[2022-07-05] MEDS: CEFTRIAXONE 1,000 MG in NA CHLORIDE 0.9% 50 ML IVPB SCH (08:24)
[2022-07-05] MEDS ORDERED: predniSONE 20 MG TAB PO SCH (09:00)
[2022-07-05 09:20] VITALS: O2SAT 94
[2022-07-05 12:53] VITALS: BP 152/69; TEMP 97.6
--- NOTE | 2022-07-06 01:22 | DS ---
Date of Discharge: 07/05/2022 Disposition: Discharged to go home. Physical Examination: HEENT: Unremarkable. Lungs: Bilateral good equal air entry. Clear to auscultation. Diminished air entry in right lung base, unchanged from yesterday. Not using any accessory muscles of respiration. Heart: Sounds normal. Abdomen: Soft. Bowel sounds normal. No guarding, rigidity, tenderness, or distention. Extremities: No leg edema. Discharge Medications And Instructions: 1. Continue all prior home medications. 2. Advair 250/50 one puff 2 times a day. 3. Albuterol inhaler 2 puffs 4 times a day as needed for shortness of breath. 4. Cefuroxime 250 mg 2 times a day for 1 week. 5. Doxycycline 100 mg 2 times a day for 1 week. 6. Prednisone 10 mg tablet. The patient to take 3 tablets daily for 3 days, then 2 tablets daily for 3 days, then 1 tablet daily for 3 days, and then stop. 7. Follow up at office next week. 8. Metoprolol 50 mg daily. 9. The patient has appointment to see me on 07/12/2022 and she was advised to keep that appointment. Hospital Course: This is a 66-year-old pleasant female patient admitted to the hospital with complaints of shortness of breath. Please see dictated H and P for more information. The patient was admitted to the hospital with pneumonia, acute respiratory failure with hypoxia, and acute exacerbation of COPD. Please see dictated H and P for more information. After patient was evaluated and admitted to the hospital, she was treated with oxygen replacement therapy and IV antibiotic. Initially she was on Levaquin, which did not help to improve and subsequently we changed it to ceftriaxone as well as doxycycline. Overall, her condition improved. We also gave her IV steroid. Overall, her condition improved. The patient did require to continue to use oxygen as her room air oxygen saturation was dropping down to 87%. Arrangements completed today for use of home oxygen and patient was discharged to go home in stable condition. Last chest x-ray has started to show small right pleural effusion and we will continue to follow up that on outpatient basis. I have advised her to get a chest x-ray done prior to office followup visit so we can follow up on it. Final Diagnoses: 1. Pneumonia. 2. Acute exacerbation of chronic obstructive pulmonary disease. 3. Acute respiratory failure with hypoxia. 4. Hypertension. 5. Hyperlipidemia. 6. Gastroesophageal reflux disease. 7. Chronic back pain. RITA/MODL Voice ID: [id number] Report ID: [id number] MTDD
== END 2022-07-05 13:42 | disposition home or self-care (01) | DRG 193 ==
LOC: ER 09:31 → ERHOLD 12:17 → 2ND 06-30 08:56
PROVIDERS: ADMIT Internal Medicine; ATTEND Internal Medicine
DX: J18.9 Pneumonia, unspecified organism (principal); J96.01 Acute respiratory failure with hypoxia; J44.1 Chronic obstructive pulmonary disease with (acute) exacerbation; E86.0 Dehydration; I10 Essential (primary) hypertension; E78.5 Hyperlipidemia, unspecified; K21.9 Gastro-esophageal reflux disease without esophagitis; G89.29 Other chronic pain; M54.9 Dorsalgia, unspecified; D64.9 Anemia, unspecified; Z79.899 Other long term (current) drug therapy; Z88.0 Allergy status to penicillin; Z87.891 Personal history of nicotine dependence; Z86.16 Personal history of COVID-19; Z20.822 Contact with and (suspected) exposure to COVID-19; Z82.49 Family history of ischemic heart disease and other diseases of the circulatory system; Z80.0 Family history of malignant neoplasm of digestive organs
CPT/HCPCS: 0241U; 36415; 71045; 71046; 71275; 80048; 80053; 80061; 81003; 81015; 82947; 83605; 83735; 83880; 84100; 85025; 85610; 85730; 87040; 87086; 87088; 93005; 94640; 94760; 96365; 96375; 99285; J1650; J1940; J2405; J2920; J3535; J7030; J7512; J7613; Q9967

== ENCOUNTER 2023-12-08 15:16 | Emergency (ER) | payer OTHER, MEDICARE ==
--- OUTSIDE RECORDS SUMMARY | 2023-12-08 15:19 | XMS REPORT | Continuity of Care Document ---
Author Name Unknown Address [address] [facility] [address] [place] [address] [facility] thconnect Address [address] [facility] [address] [place] [address] Care Team Providers Care Parts Identification Technician Name Role Phone Dl Hinds MD Primary Care Physician [phone] EAN CALIX Attending Clinician Un available DL HINDS Attending Clinician Unavailable [email or web address]_S Attending Clinician Unavaila ble DL HNIDS Attending Clinician Un available Erica Rodas MA Attending Clinician Unavailab le [email or web address]_S Admitting Clinician Unavaila david Payers Payer Name Policy Type Policy Number Effective Date Expirati on Date Source [facility] [place] [employer] [id number] 2021 00:00:00 2021 00:00:00 MEDICARE PART A AND B [id number] 2020 00:00:00 Allergies, Adverse Reactions, Alerts Allergy Name Allergy Type Status Severity Reaction(s) Onset Date Inactive Date Treating Clinician Comments Source Penicill ins Allergy to substanc e Active Hives 12-23 00:00: 00 [facility] Social History Social Habit Start Date Stop Date Quantity Comments Source Sexual orientation [facility] Exposure to SARS-CoV-2 (event) 2022-09-03 00:00:00 2022-09-13 13:07:00 Not sure [facility] History of Social function 2021-09-09 00:00:00 2021-09-09 00:00:00 [facility] Tobacco use and exposure 2021-09-09 00:00:00 2021-09-09 00:00:00 Smokeless tobacco non-user [facility] Sex Assigned At 1955 00:00:00 1955 00:00:00 [facility] Smoking Status Start Date Stop Date Source Tobacco smoking consumption unknown [facility] Never smoked tobacco [facility] Medications Ordered Medication Name Filled Medication Name Start Date Stop Date Current Medication? Ordering Clinician Indication Dosage Frequency Signature (SIG) Comments Components Source tiotropium (Spiriva) 18 MCG inhalation capsule 2022-08 00:00: 00 12-10 04:59 :00 No [id number] 18ug QD Place 1 capsule (18 mcg total) into inhaler and inhale 1 (one) time each day. [facility] fluticasone -salmeterol (Advair HFA) 230-21 MCG/ACT inhaler 09-13 00:00: 00 09-14 05:59 :00 No [id number] 2{puff} Q.5D Inhale 2 puffs in the morning and 2 puffs before bedtime. Rinse mouth with water after use to reduce aftertaste and incidence of candidiasi s. Do not swallow.. [facility] tiotropium (Spiriva) 18 MCG inhalation capsule 09-13 00:00: 00 03-13 04:59 :00 No [id number] [address]ug QD Place 1 capsule (18 mcg total) into inhaler and inhale 1 (one) time each day. [facility] sertraline (Zoloft) 100 MG tablet 08-23 00:00: 00 Yes 100mg QD Take 100 mg by mouth 1 (one) time each day. [facility] pantoprazol e (ProtoNix) 40 MG EC tablet 08-23 00:00: 00 Yes 40mg QD Take 40 mg by mouth 1 (one) time each day. [facility] losartan (Cozaar) 50 MG tablet 2021-08 00:00: 00 Yes 50mg QD Take 50 mg by mouth 1 (one) time each day. [facility] Stiolto Respimat 2.5-2.5 MCG/ACT aerosol solution inhaler 04-13 00:00: 00 Yes [id number] INHALE 2 PUFFS BY MOUTH ONCE DAILY [facility] ondansetron (Zofran) 4 MG tablet 08-31 00:00: 00 Yes TAKE 1 TABLET BY MOUTH 4 TIMES DAILY NEEDED FOR NAUSEA AND VOMITING [facility] amLODIPine (Norvasc) 5 MG tablet 08-31 00:00: 00 Yes 5mg QD Take 5 mg by mouth 1 (one) time each day. [facility] predniSONE (Deltasone) 20 MG tablet 08-28 00:00: 00 Yes 20mg QD Take 20 mg by mouth 1 (one) time each day. TAKE 1 TABLET BY MOUTH ONCE DAILY FOR 14 DAYS [facility] metoprolol succinate XL (Toprol-XL) 50 MG 24 hr tablet 2020-08 00:00: 00 Yes 50mg QD Take 50 mg by mouth 1 (one) time each day. [facility] sertraline (Zoloft) 50 MG tablet 2020-08 00:00: 00 Yes 50mg QD Take 50 mg by mouth 1 (one) time each day. [facility] rosuvastati n (Crestor) 20 MG tablet 2020-08 00:00: 00 Yes 20mg QD Take 20 mg by mouth 1 (one) time each day. [facility] tiZANidine (Zanaflex) 4 MG tablet 2020-08 00:00: 00 Yes TAKE 1 TABLET BY MOUTH TWICE DAILY NEEDED FOR BACK PAIN [facility] Ilevro 0.3 % suspension 03-03 00:00: 00 Yes [facility] Durezol 0.05 % ophthalmic solution 03-02 00:00: 00 Yes [facility] Immunizations Ordered Immunization Name Filled Immunization Name Date Status Comments Source Influenza, injectable, quadrivalent 2021-05-02 00:00:00 Completed [facility] Influenza, injectable, quadrivalent Unknown Completed [facility] Vital Signs Vital Name Observation Time Observation Value Comments S nenace Systolic blood pressure 2023-06-13 19:54:00 170 mm[Hg] [facility] Diastolic blood pressure 2023-06-13 19:54:00 87 mm[Hg] [facility] Heart rate 2023-06-13 19:54:00 56 /min [facility] Respiratory rate 2023-06-13 19:54:00 16 /min [facility] Body height 2023-06-13 19:54:00 157.5 cm [facility] Body weight 2023-06-13 19:54:00 71.668 [facility] BMI 2023-06-13 19:54:00 28.90 kg/m2 [facility] Oxygen saturation in Arterial blood by Pulse oximetry 2023-06-13 19:54:00 93 /min [facility] Systolic blood pressure 2022-09-13 19:52:00 134 mm[Hg] [facility] Diastolic blood pressure 2022-09-13 19:52:00 84 mm[Hg] [facility] Heart rate 2022-09-13 19:52:00 65 /min [facility] Body temperature 2022-09-13 19:52:00 36.56 Tiera [facility] Respiratory rate 2022-09-13 19:52:00 16 /min [facility] Body height 2022-09-13 19:52:00 157.5 cm [facility] Body weight 2022-09-13 19:52:00 70.761 [facility] BMI 2022-09-13 19:52:00 28.53 kg/m2 [facility] Oxygen saturation in Arterial blood by Pulse oximetry 2022-09-13 19:52:00 96 /min [facility] Systolic blood pressure 2021-09-07 20:23:00 109 mm[Hg] [facility] Diastolic blood pressure 2021-09-07 20:23:00 70 mm[Hg] [facility] Heart rate 2021-09-07 20:23:00 62 /min [facility] Body temperature 2021-09-07 20:23:00 36 Tiera [facility] Respiratory rate 2021-09-07 20:23:00 18 /min [facility] Body height 2021-09-07 20:23:00 157.5 cm [facility] Body weight 2021-09-07 20:23:00 72.576 [facility] BMI 2021-09-07 20:23:00 29.26 kg/m2 [facility] Oxygen saturation in Arterial blood by Pulse oximetry 2021-09-07 20:23:00 97 /min [facility] Encounters Start Date/Time End Date/Time Encounter Type Admission Type Attending Rust Care Department Encounter ID Source 2023-01-19 08:31:48 Outpatient [facility] [id number] [facility] 2023-01-17 08:17:59 Outpatient [facility] [id number] [facility] 2022-09-13 13:04:16 Outpatient [facility] [id number] [facility] 2021-09-28 09:14:43 Outpatient CRISTOBAL CALIX ATOMAdrienne [facility] [id number] [facility] 2021-09-08 13:35:10 Outpatient CRISTOBAL CALIX ATOMAdrienne [facility] [id number] [facility] 2020-12-06 04:02:37 Outpatient DL HIDNS [facility] [id number] [facility] 2024-06-11 14:45:00 2024-06-11 14:45:00 Outpatient DL HINDS [facility] [id number] [facility] 2023-06-13 14:45:00 2023-06-13 14:45:00 Office Visit Dl Hinds [facility] [address] [id number] [facility] 2023-05-31 00:00:00 2023-05-31 00:00:00 Outpatient GC_GCBZW_Ka diyala_S [facility] [id number] [facility] 2023-04-11 09:39:00 2023-04-11 23:59:00 Outpatient DL HINDS [facility] [id number] [facility] 2023-03-14 13:15:00 2023-03-14 13:15:00 Outpatient DL HINDS [facility] [id number] [facility] 2022-09-13 13:00:00 2022-09-13 14:34:42 Office Visit Dl Hinds [facility] [address] [id number] [facility] 2021-11-16 14:30:00 2021-11-16 14:45:00 Office Visit Cristobal Calix [facility] [address] [id number] [facility] 2021-09-28 09:00:00 2021-09-28 09:13:36 Office Visit Cristobal Calix [facility] [address] [id number] [facility] 2021-09-09 13:45:00 2021-09-09 14:00:00 Office Visit Cristobal Calix [facility] [address] [id number] [facility] 2021-09-08 00:00:00 2021-09-08 00:00:00 Telephone Erica Rodas Lamia [facility] [address] [id number] [facility] 2021-09-07 14:45:00 2021-09-07 15:29:28 Office Visit GaelDl lee [facility] [address] [id number] [facility]
[2023-12-08] MEDS ORDERED: METHYLPREDNISOLONE 125 MG INJ ONE (15:54)
[2023-12-08] MEDS ORDERED: ALBUTEROL 2.5 MG/3 ML NEB SOL ONE (15:54)
[2023-12-08] MEDS ORDERED: IPRATROPIUM BROM 0.5MG/2.5ML ONE (15:54)
[2023-12-08 16:05] LABS: Absolute Eosinophils 0.1 K/uL (0-0.5); Absolute Lymphocytes (CBC) 1.1 K/uL (0.7-4.9); Absolute Monocytes 0.7 K/uL (0.1-1.3); Absolute Neutrophil 4.3 K/uL (1.8-8.0); Basophils % 0.4 % (0-1.3); Eosinophils % 1.7 % (0-4.4); Hematocrit 37.6 % (36.0-45.0); Hemoglobin 11.9 g/dL (12.0-15.0); Lymphocytes % 17.2 % (15.3-44.8); MCHC 31.5 g/dL (32.0-36.0); MCV 73.1 fL (80-100); MPV 7.8 fL (7.6-11.3); Monocytes % 11.1 % (3.3-12.3); Neutrophils % 69.6 % (41.7-73.7); Nucleated Red Blood Cells % 0.1 % (0-0); Platelets 170 thou/uL (152-406); RBC Red Blood Cell Count 5.15 M/uL (3.86-4.86); Red Cell Distribution Width 17.3 % (12.1-15.2)
[2023-12-08 16:10] LABS: PT Prothrombin Time 12.6 SECONDS (9.5-12.5); PTT, Activated Partial Thromb 31.5 SECONDS (24.3-36.9); Protime INR 1.15
[2023-12-08 16:16] LABS: Albumin 3.7 g/dL (3.4-5.0); Albumin/Globulin Ratio 1.2 (1.1-1.8); Anion Gap 9.4 mEq/L (5.0-15.0); Bilirubin Total 0.5 mg/dL (0.2-1.0); Globulin 3.2 g/dL (2.3-3.5); Potassium 3.4 mEq/L (3.5-5.1); Protein, Total 6.9 g/dL (6.4-8.2)
[2023-12-08 16:18] LABS: SARS-CoV-2 Antigen CONTROL BLUE LINE VIS/BG OK; SARS-CoV-2 Antigen Rapid Res Negative (Negative)
[2023-12-08 16:19] LABS: Urine Bacteria None Seen /HPF (<20); Urine Bilirubin NEGATIVE (Negative); Urine Blood Trace (Negative); Urine Clarity Extremely Turbid (Clear); Urine Color Light-Yellow (Yellow); Urine Crystals Unidentified Few /HPF (None Seen); Urine Culture Reflex Order NOT NEEDED; Urine Glucose NEGATIVE (Negative); Urine Ketones NEGATIVE (Negative); Urine Microscopic Reflex YN ORDER UMIC; Urine Mucus Slight /HPF (None Seen); Urine Nitrite NEGATIVE (Negative); Urine Protein TRACE (Negative); Urine RBC <5 /HPF (None Seen); Urine Urobilinogen Normal (Normal); Urine WBC <5 /HPF (<5); Urine Yeast (Budding) Trace /HPF (None Seen); Urine pH 5.5 (5.0-7.0)
--- NOTE | 2023-12-08 17:42 | RAD REPORT ---
EXAM DESCRIPTION: RADChest Single View12/08/2023 4:07 pm CLINICAL HISTORY: Cough;Fever COMPARISON: Chest Pa And Lat (2 Views) dated 07/12/2022; Chest Pa And Lat (2 Views) dated 07/03/2022; Chest Pa And Lat (2 Views) dated 07/01/2022; Chest Single View dated 06/28/2022 TECHNIQUE: Portable AP view of the chest. FINDINGS: The lungs are clear. No pneumothorax or effusion. The cardiomediastinal contours are unre markable. IMPRESSION: No acute cardiopulmonary process.
--- NOTE | 2023-12-08 19:14 | RAD REPORT ---
EXAM DESCRIPTION: CT - Chest For Pe Angio - 12/08/2023 6:09 pm CLINICAL HISTORY: SOB;Cough COMPARISON: Chest For Pe Angio dated 06/28/2022; Chest For Pe Angio dated 11/10/2021 TECHNIQUE: Thin axial CT images of the chest were obtained following administration of 95 mL Isovue 370 IV contrast. Multiplanar reconstructions, and maximum intensity projection reconstructions were g enerated and reviewed. Exam utilizes a protocol for optimal evaluation of pulmonary arterial tree. All CT scans are performed using dose optimization technique as appropriate and may include automated exposure control or mA/KV adjustment according to patient size. FINDINGS: Pulmonary arteries are normal. No emboli or other suspicious finding. No acute or signific ant aorta findings. No mass or infiltrate in the lung parenchyma. Noninclusion of the lowermost lung bases limits evaluat ion Moderate to advanced centrilobular emphysema predominantly at the bases. No pleural thickening or pleural effusion. No pneumothorax. Mildly prominent subcarinal and right hilar lymph nodes measuring up to 1.1 cm in short axis. No ches t wall mass or abnormal axilliary lymphadenopathy. Moderate hiatal hernia. IMPRESSION: No evidence of acute central pulmonary emboli. Other incidental findings as above, including mildly prominent right hilar and mediastinal lymph node s, most likely of reactive/ inflammatory nature.
--- NOTE | 2023-12-08 19:48 | EDPHYS ---
Physician Documentation [facility] Name: Abigail Barlow Age: 68 yrs Sex: Female : 1955 Arrival Date: 12/08/2023 Time: 15:16 Bed 2 Private MD: Eliot Arzate C ED Physician Roger Joy HPI: 12/07 15:45 This 68 yrs old Female presents to ER via Ambulatory with complaints of Cough, Sore cp Throat, Congestion. 15:45 The patient or guardian reports cough, that is intermittent. cp 15:45 Onset: The symptoms/episode began/occurred today. Associated signs and symptoms: cp Pertinent positives: fever, sore throat, Pertinent negatives: chest pain, diarrhea, vomiting. Historical: - Allergies: 15:33 PENICILLINS; aa5 - PMHx: 15:33 COPD; Hypertensive disorder; aa5 - PSHx: 15:33 None; aa5 - Immunization history:: Adult Immunizations unknown. - Infectious Disease History:: Denies. - Social history:: Smoking status: Patient denies any tobacco usage or history of. ROS: 15:50 Constitutional: Positive for body aches, fever, Negative for poor PO intake, cp 15:50 Eyes: Negative for injury, pain, redness, and discharge, cp 15:50 ENT: Positive for sore throat, Negative for drainage from ear(s), ear pain, 15:50 Cardiovascular: Negative for chest pain, edema, palpitations, 15:50 Respiratory: Positive for cough, 15:50 Abdomen/GI: Negative for abdominal pain, vomiting, diarrhea, constipation, 15:50 : Negative for urinary symptoms, flank pain, 15:50 Neuro: Negative for altered mental status, dizziness, headache, syncope, weakness, 15:50 All other systems are negative, Exam: 15:55 Constitutional: The patient appears in no acute distress, alert, awake, cp non-diaphoretic, non-toxic, well developed, well nourished, 15:55 Head/Face: Normocephalic, atraumatic. cp 15:55 Eyes: Periorbital structures: appear normal, Conjunctiva: normal, no exudate, no injection, Sclera: no appreciated abnormality, Lids and lashes: appear normal, bilaterally, 15:55 ENT: External ear(s): are unremarkable, Ear canal(s): are normal, clear, TM's: dullness, bilaterally, Nose: is normal, Mouth: Lips: moist, Oral mucosa: moist, Posterior pharynx: Airway: no evidence of obstruction, patent, Tonsils: no enlargement, no exudate, swelling, is not appreciated, erythema, that is mild, exudate, is not appreciated, Voice: is normal, 15:55 Neck: ROM/movement: is normal, is supple, without pain, no range of motions limitations, no meningismus, no nuchal rigidity, 15:55 Chest/axilla: Inspection: normal, 15:55 Cardiovascular: Rate: normal, Rhythm: regular, Edema: is not appreciated, JVD: is not appreciated, 15:55 Respiratory: the patient does not display signs of respiratory distress, Respirations: labored breathing, that is mild, Breath sounds: decreased breath sounds, that are mild, throughout, stridor, is not appreciated, wheezing: that is mild, is heard diffusely, 15:55 Abdomen/GI: Inspection: abdomen appears normal, Palpation: abdomen is soft and non-tender, in all quadrants, 15:55 Back: pain, is absent, ROM is normal, 15:55 Skin: no rash present. 15:55 Neuro: Orientation: to person, place \T\ time. Mentation: is normal, Motor: moves all fours, strength is normal, Sensation: is normal, Vital Signs: 15:19 BP 157 / 96; Pulse 75; Resp 20 S; Temp 100.3(O); Pulse Ox 88% on R/A; Weight 70.31 kg aa5 (R); Height 5 ft. 2 in. (R); 15:20 Pulse Ox 93% on 2 lpm NC; aa5 16:04 BP 149 / 77; Pulse 73; Resp 18; Pulse Ox 100% on Nebulizer Mask; ld1 17:37 BP 122 / 65; Pulse 71; Resp 16; Pulse Ox 95% on R/A; mb9 18:35 BP 131 / 68; Pulse 68; Resp 18; Pulse Ox 94% on R/A; mb9 19:12 BP 127 / 73; Pulse 63; Resp 17 S; Pulse Ox 94% on R/A; lg3 15:19 Body Mass Index 28.35 (70.31 kg, 157.48 cm) aa5 MDM: 15:21 Patient medically screened. 19:46 Data reviewed: vital signs, nurses notes, lab test result(s), EKG, radiologic studies, cp CT scan, plain films, and as a result, I will discharge patient. 19:46 Consideration of Admission/Observation Escalation of care including cp admission/observation considered. I considered the following discharge prescriptions or medication management in the emergency department Medications were administered in the Emergency Department. See MAR. Care significantly affected by the following chronic conditions: Hypertension, Chronic Obstructive Pulmonary Disease. Counseling: I had a detailed discussion with the patient and/or guardian regarding the historical points, exam findings, and any diagnostic results supporting the discharge/admit diagnosis, lab results, radiology results, the need for outpatient follow up, an cook starch, to return to the emergency department if symptoms worsen or persist or if there are any questions or concerns that arise at home. Response to treatment: the patient's symptoms have markedly improved after treatment, and as a result, I will discharge patient. 12/07 15:32 Order name: Blood Culture Adult (2) 12/07 15:32 Order name: CBC with Diff; Complete Time: 17:45 12/07 17:45 Interpretation: Normal except: RBC 5.15; HGB 11.9; MCV 73.1; MCH 23.0; MCHC 31.5; RDW cp 17.3. 12/07 15:32 Order name: CMP; Complete Time: 17:45 12/07 17:45 Interpretation: Normal except: K 3.4; CL 108; GFR 87; ALK 126. 12/07 15:32 Order name: Lactate w/ 2H reflex if indic.; Complete Time: 17:45 05/ 17:45 Interpretation: Reviewed. 12/07 15:32 Order name: Protime (+inr); Complete Time: 17:45 12/07 15:32 Order name: Ptt, Activated; Complete Time: 17:45 12/07 15:32 Order name: Urinalysis w/ reflexes; Complete Time: 17:45 / 17:47 Interpretation: Normal except: [facility] Extremely Turbid; UBLD Trace; UPROT TRACE; UESTR cp 250; BYST Trace. 12/07 15:32 Order name: Influenza Screen (a \T\ B); Complete Time: 17:45 12/07 15:32 Order name: SARS RAPID; Complete Time: 17:45 cp 12/07 15:32 Order name: Strep cp 12/07 17:46 Interpretation: Reviewed. cp 12/07 16:22 Order name: Throat Culture EDMS 12/07 15:32 Order name: Chest Single View XRAY; Complete Time: 17:45 cp 12/07 17:46 Interpretation: Report review. 12/07 17:48 Order name: CT Chest For PE Angio; Complete Time: 19:20 cp 12/07 15:32 Order name: EKG; Complete Time: 15:33 cp 12/07 15:32 Order name: Accucheck; Complete Time: 15:53 cp 12/07 15:32 Order name: Cardiac monitoring; Complete Time: 15:53 cp 12/07 15:32 Order name: EKG - Nurse/Tech; Complete Time: 16:14 cp 12/07 15:32 Order name: IV Saline Lock - Large Bore; Complete Time: 15:53 cp 12/07 15:32 Order name: Labs collected and sent; Complete Time: 15:53 cp 12/07 15:32 Order name: O2 Per Protocol; Complete Time: 15:32 cp 12/07 15:32 Order name: O2 Sat Monitoring; Complete Time: 15:32 cp 12/07 15:32 Order name: Vital Signs; Complete Time: 15:32 cp 12/07 19:21 Order name: Misc. Order: ambulate on room air; Complete Time: 19:40 cp Administered Medications: 16:05 Drug: MethylPrednisoLONE IVP 125 mg IVP once Route: IVP; Site: left antecubital; ld1 20:08 Follow up: Response: No adverse reaction lg3 16:06 Drug: DuoNeb Nebulize (2.5 mg - 0.5 mg) 3 ml Nebulizer once Route: Nebulizer; ld1 20:08 Follow up: Response: No adverse reaction lg3 20:08 Drug: AZITHromycin PO 500 mg PO once Route: PO; lg3 20:08 Follow up: Response: No adverse reaction lg3 Disposition Summary: 12/08/23 19:47 Discharge Ordered Notes: Location: Home cp Problem: new cp Symptoms: have improved cp Condition: Stable cp Diagnosis - COPD/ Chronic obstructive pulmonary disease with acute lower respiratory infection cp Followup: cp - With: Eliot Arzate MD - When: 2 - 3 days - Reason: Recheck today's complaints Discharge Instructions: - Discharge Summary Sheet cp - Chronic Obstructive Pulmonary Disease Exacerbation cp Forms: - Medication Reconciliation Form cp - Antibiotic Education cp - Prescription Opioid Use cp - Patient Portal Instructions cp - Leadership Thank You Letter cp Prescriptions: - NEBULIZER MACHINE - nebulize 1 ampule NEBULIZATION route every 4-6 hours; 1 unit; Refills: 0, cp Product Selection Permitted - Bromfed DM 2-30-10 mg/5 mL Oral syrup - administer 10 milliliter ORAL route every 6 hours as needed for cold symptoms; cp 240 milliliter; Refills: 0, Product Selection Permitted - Prednisone 20 mg Oral Tablet - take 3 tablets ORAL route once daily for 5 days; 15 tablet; Refills: 0, Product cp Selection Permitted - Albuterol Sulfate 2.5 mg /3 mL (0.083 %) Inhalation Solution for Nebulization - inhale 1 unit NEBULIZATION route every 8 hours As needed; 1 unit; Refills: 0, cp Product Selection Permitted - Zithromax Z-Misha 250 mg Oral Tablet - take 1 tablet ORAL route as directed for 5 days Day 1 - take two (2) tablets cp one time. Day 2, 3, 4 , 5 take one (1) tablet once daily.; 6 tablet; Refills: 0, Product Selection Permitted Addendum: 12/12/2023 18:14 I was immediately available on-site in the Emergency Department for consultation in the m s3 care of the patient. Signatures: Dispatcher [employer] EDMS Kaylah Meza, RN RN aa5 Andrew López PA PA cp Able, Lacie, RN RN lg3 Roger Joy DO DO ms3 Coreen Joy RN RN ld1 Corrections: (The following items were deleted from the chart) 12/07 15:33 15:32 BLOOD CULTURE*+BA.LAB.BRZ ordered. EDMS EDMS 15:33 15:32 CBC+H.LAB.BRZ ordered. EDMS EDMS 15:33 15:32 COMPREHENSIVE METABOLIC PANEL+C.LAB.BRZ ordered. EDMS EDMS 15:33 15:32 LACTATE+C.LAB.BRZ ordered. EDMS EDMS 15:33 15:33 PROTIME (+INR)+COAG.LAB.BRZ ordered. EDMS EDMS 15:33 15:33 PTT, ACTIVATED+COAG.LAB.BRZ ordered. EDMS EDMS 15:33 15:33 Urinalysis+U.LAB.BRZ ordered. EDMS EDMS 15:33 15:33 Influenza Screen (A \T\ B)+BA.LAB.BRZ ordered. EDMS EDMS 15:33 15:33 SARS-COV-2 Antigen Rapid+I.LAB.BRZ ordered. EDMS EDMS 15:33 15:33 Group A Streptococcus Rapid Sc+BA.LAB.BRZ ordered. EDMS EDMS
--- NOTE | 2023-12-08 19:48 | ER ---
Nurse's Notes [facility] Name: Abigail Barlow Age: 68 yrs Sex: Female : 1955 Arrival Date: 12/08/2023 Time: 15:16 Bed 2 Private MD: Eliot Arzate C Diagnosis: COPD/ Chronic obstructive pulmonary disease with acute lower respiratory infection Presentation: 12/07 15:19 Chief complaint: Patient states: sore itchy throat since Tuesday. Reports cough and aa5 congestion today. Pt also reports fever. Denies chest pain, denies SOB. 15:19 Coronavirus screen: congestion, cough unrelated to allergies. Ebola Screen: Patient aa5 denies travel to an Ebola-affected area in the 21 days before illness onset. Initial Sepsis Screen: Does the patient meet any 2 criteria? No. Patient's initial sepsis screen is negative. Does the patient have a suspected source of infection? No. Patient's initial sepsis screen is negative. Risk Assessment: Do you want to hurt yourself or someone else? Patient reports no desire to harm self or others. Onset of symptoms was November 2023. 15:19 Acuity: JOAN 2 aa5 15:19 Method Of Arrival: Ambulatory aa5 Historical: - Allergies: 15:33 PENICILLINS; aa5 - PMHx: 15:33 COPD; Hypertensive disorder; aa5 - PSHx: 15:33 None; aa5 - Immunization history:: Adult Immunizations unknown. - Infectious Disease History:: Denies. - Social history:: Smoking status: Patient denies any tobacco usage or history of. Screenin:04 [facility] ED Fall Risk Assessment (Adult) History of falling in the last 3 months, ld1 including since admission No falls in past 3 months (0 pts). Abuse screen: Denies threats or abuse. Denies injuries from another. Nutritional screening: No deficits noted. Tuberculosis screening: No symptoms or risk factors identified. Assessment: 16:04 General: Appears in no apparent distress. comfortable, Behavior is calm, cooperative, ld1 appropriate for age. Pain: Denies pain. Neuro: Level of Consciousness is awake, alert, obeys commands, Oriented to person, place, time, situation, Appropriate for age. Cardiovascular: Capillary refill < 3 seconds Patient's skin is warm and dry. Rhythm is sinus rhythm. Respiratory: Airway is patent Respiratory effort is even, unlabored, Breath sounds are clear bilaterally. GI: Abdomen is round non-distended. : No signs and/or symptoms were reported regarding the genitourinary system. EENT: No signs and/or symptoms were reported regarding the EENT system. Derm: No signs and/or symptoms reported regarding the dermatologic system. Musculoskeletal: No signs and/or symptoms reported regarding the musculoskeletal system. 18:35 Reassessment: Patient appears in no apparent distress at this time. No changes from mb9 previously documented assessment. Patient and/or family updated on plan of care and expected duration. Pain level reassessed. Patient is alert, oriented x 3, equal unlabored respirations, skin warm/dry/pink. 19:12 General: Appears in no apparent distress. comfortable, Behavior is calm, cooperative. lg3 Pain: Denies pain. Neuro: No deficits noted. Romero Agitation-Sedation Scale (RASS): 0 - Alert and Calm Level of Consciousness is awake, alert, obeys commands, Oriented to person, place, time, situation. Cardiovascular: No deficits noted. Heart tones S1 S2 present Capillary refill < 3 seconds Clubbing of nail beds is absent JVD is absent Patient's skin is warm and dry. Respiratory: No deficits noted. Reports cough that is Airway is patent Respiratory effort is even, unlabored, Respiratory pattern is regular, symmetrical, Breath sounds are clear bilaterally. GI: No deficits noted. No signs and/or symptoms were reported involving the gastrointestinal system. Abdomen is round non-distended. : No deficits noted. No signs and/or symptoms were reported regarding the genitourinary system. EENT: No deficits noted. Throat is clear Reports pain when swallowing. Derm: No deficits noted. No signs and/or symptoms reported regarding the dermatologic system. Skin is intact, is healthy with good turgor, Skin is dry, Skin is normal, Skin temperature is warm. Musculoskeletal: No deficits noted. No signs and/or symptoms reported regarding the musculoskeletal system. Circulation, motion, and sensation intact. Range of motion: intact in all extremities. Vital Signs: 15:19 BP 157 / 96; Pulse 75; Resp 20 S; Temp 100.3(O); Pulse Ox 88% on R/A; Weight 70.31 kg aa5 (R); Height 5 ft. 2 in. (R); 15:20 Pulse Ox 93% on 2 lpm NC; aa5 16:04 BP 149 / 77; Pulse 73; Resp 18; Pulse Ox 100% on Nebulizer Mask; ld1 17:37 BP 122 / 65; Pulse 71; Resp 16; Pulse Ox 95% on R/A; mb9 18:35 BP 131 / 68; Pulse 68; Resp 18; Pulse Ox 94% on R/A; mb9 19:12 BP 127 / 73; Pulse 63; Resp 17 S; Pulse Ox 94% on R/A; lg3 15:19 Body Mass Index 28.35 (70.31 kg, 157.48 cm) aa5 ED Course: 15:17 Patient arrived in ED. rg4 15:17 Eliot Arzate MD is Private Physician. rg4 15:18 [facility]. cp 15:18 Roger Joy DO is Attending Physician. cp 15:19 Arm band placed on Patient placed in an exam room, on a stretcher. aa5 15:35 Triage completed. aa5 15:53 Coreen Joy, SHIVA is Primary Nurse. ld1 15:53 Strep Sent. ld1 15:53 SARS RAPID Sent. ld1 15:53 Influenza Screen (a \T\ B) Sent. ld1 15:53 Blood Culture Adult (2) Sent. ld1 15:53 CBC with Diff Sent. ld1 15:53 Lactate w/ 2H reflex if indic. Sent. ld1 15:53 Inserted saline lock: 20 gauge in left antecubital area, using aseptic technique. Blood ld1 collected. 16:04 Patient has correct armband on for positive identification. Placed in gown. Bed in low ld1 position. Call light in reach. Side rails up X2. monitor technician on. Pulse ox on. NIBP on. Door closed. Noise minimized. Warm blanket given. 16:04 No provider procedures requiring assistance completed. ld1 16:06 Strep Sent. ld1 16:06 SARS RAPID Sent. ld1 16:06 Influenza Screen (a \T\ B) Sent. ld1 16:06 Lactate w/ 2H reflex if indic. Sent. ld1 16:06 Blood Culture Adult (2) Sent. ld1 16:07 Chest Single View XRAY In Process Unspecified. EDMS 18:11 CT Chest For PE Angio In Process Unspecified. EDMS 19:03 Report given to Kalee RN. mb9 19:46 Eliot Arzate MD is Referral Physician. cp 20:11 IV discontinued, intact, bleeding controlled, No redness/swelling at site. Pressure lg3 dressing applied. Administered Medications: 16:05 Drug: MethylPrednisoLONE IVP 125 mg IVP once Route: IVP; Site: left antecubital; ld1 20:08 Follow up: Response: No adverse reaction lg3 16:06 Drug: DuoNeb Nebulize (2.5 mg - 0.5 mg) 3 ml Nebulizer once Route: Nebulizer; ld1 20:08 Follow up: Response: No adverse reaction lg3 20:08 Drug: AZITHromycin PO 500 mg PO once Route: PO; lg3 20:08 Follow up: Response: No adverse reaction lg3 Medication: 16:04 VIS not applicable for this client. ld1 Outcome: 19:47 Discharge ordered by MD. cp 20:11 Discharged to home ambulatory, with significant other, lg3 20:11 Condition: stable 20:11 Discharge instructions given to family, Instructed on discharge instructions, follow up and referral plans. medication usage, Demonstrated understanding of instructions, follow-up care, medications, Prescriptions given X 5 20:12 Patient left the ED. lg3 Signatures: Dispatcher [employer] EDOH Kaylah Meza, RN RN aa5 Andrew López PA PA cp Garcia, Rubi rg4 Aisha Donohue, RN RN lg3 Coreen Joy RN RN ld1 Savi Ceja RN RN mb9
[2023-12-08] MEDS ORDERED: AZITHROMYCIN 250 MG TAB ONE (20:02)
[2023-12-08 20:30] VITALS: BP 127/73; TEMP 100.3; O2SAT 94
--- NOTE | 2023-12-12 13:30 | EKG ---
Test Date: 2023-12-08 Test Time: 16:10:55 Circuit [employer]ider: Sidney PATEL MEASUREMENT RESULTS: Intervals: Rate: 69 NC: 142 QRSD: 84 QT: 428 QTc: 458 [place]: P: 38 NC: 142 QRS: 98 T: 64 INTERPRETIVE STATEMENTS: Normal sinus rhythm Rightward axis Borderline ECG Compared to ECG 06/28/2022 10:23:26 Right-axis deviation now present Electronically Signed On 12-12-23 13:20:03 CDT by Jaskaran Walker
== END 2023-12-08 20:12 | disposition home or self-care (01) ==
LOC: ER 15:16
DX: J44.0 Chronic obstructive pulmonary disease with (acute) lower respiratory infection (principal); Z11.52 Encounter for screening for COVID-19; I10 Essential (primary) hypertension; Z88.0 Allergy status to penicillin
CPT/HCPCS: 87040 ×2; 87070; 85025; 81001; 36415; 85610; 87081; 83605; 85730; 80053; 87804 ×2; 71275; 71045; 94640; 96374; 99285; 87811; Q9967; J7613; J7644; J2919; 93005